=== PATIENT | female | born 1970 | race Caucasian/White ===

== ENCOUNTER 2017-12-08 11:04 | Emergency (ER) | payer OTHER, SELFPAY ==
[2017-12-08 11:07] VITALS: BP 128/82; PULSE 94; RESP 16; TEMP 36.7; O2SAT 98
--- NOTE | 2017-12-08 11:22 | ED.GENADUL_ITS ---
Discharge Plan Disposition Patient Disposition: HOME Condition: Improving Discharge Details Chief Complaint: Headache Clinical Impression: Migraine Primary Care Provider: Elisa Saini ED Provider: Amos Pham Home Meds and New Rx's Prescriptions: Continue ibuprofen 100 MG/5 ML suspension 200 mg PO PRN RF: 0 naproxen sodium [Aleve] 220 MG tablet 220 mg PO Q12H PRN RF: 0 gabapentin 300 MG capsule 300 mg PO Q8H PRN Qty: 60 RF: 3 amitriptyline 50 MG tablet 50 mg PO HS Qty: 30 RF: 6 Aspirin/Acetaminophen/Caffeine [Excedrin Migraine Caplet] 1 EACH Tablet 1 tab PO PRN PRNRF: 0 Discharge Instructions Instructions: Migraine Headache (ED) Additional Instructions: Home to rest today. Sleep in a dark, quiet room. Small, frequent sips of fluids to maintain hydration. Return to the emergency department for development of fever, worsening headache , or any other acute concerns. Continue all of your regularly prescribed medications. Medical Decision Making MDM Narrative Medical decision making narrative: 47-year-old female patient presents with migraine headache similar to previous. No recent trauma or illness afebrile, nonfocal neurologic exam. IV placed, patient given parenteral fluids and medications. Patient observed in the emergency department. She had near complete resolution of her headache. She has no further persistent complaints. No evidence of meningitis or cortical stroke. She is appropriate for discharge home at this time. I discussed with her return precautions to the ER HPI - General Adult General Mode of arrival: ambulatory . Date/Time Provider Initiated Documentation: 12/08/17 11:12 . Limitations to Documentation: no limitations . Information obtained by: patient . History of Present Illness 47 year old F presents to the emergency department with the chief complaint of Headache, described as severe, Quality is described as aching and constant, and is localized to the head and chest. Patient reports no radiation. Patient started experiencing this hour(s) and it has been constant. No relieving factors improve symptom(s), Other factors that worsen symptoms ( light) . HPI Narrative: 47-year-old patient presents with headache similar to previous migraines. No recent fall, illness. Has been refractory to home medications Related Data Home Medications Medication Instructions Recorded Confirmed ibuprofen 200 mg PO PRN ml 10/07/12 04/10/17 Aspirin/Acetaminophen/Caffeine 1 tab PO PRN PRN 04/10/17 04/10/17 [Excedrin Migraine Caplet] naproxen sodium [Aleve] 220 mg PO Q12H PRN tab-cap 04/16/17 Previous Rx's Medication Instructions Recorded gabapentin 300 mg PO Q8H PRN #60 tab-cap 08/13/17 amitriptyline 50 mg PO HS #30 tab-cap 11/22/17 Allergies Allergy/AdvReac Type Severity Reaction Status Date / Time fentanyl Allergy Severe SOB Unverified 12/08/17 11:12 morphine Allergy Intermediate Itching Unverified 12/08/17 11:12 General Stated Complaint: Headache NARA: 4 Review of Systems Review of Systems 8 systems reviewed and otherwise neg PFSH Social History Smoking/Tobacco Use Status: Current every day Exam Narrative Exam Narrative: GEN: awake, alert, oriented x3. Lying in darkened room, well groomed, interactive. HEAD: Normocephalic, atraumatic ENT: Mucous membranes moist, oropharynx unremarkable, External ear exam unremarkable EYES: PERRL, EOMI NECK: Full ROM, no MIGUEL, no menigismus CHEST/RESP: Nontender, bilateral end exp wheeze, speaking in full sentences CARDIOVASCULAR: RRR, no murmur, rub jerome. 2+ Rad pulse bilateral ABDOMEN: Soft, nontender, no mass. +Bowel sounds EXT: Full ROM, no edema, no rash Neuro: Grossly normal neurologic exam, conversant, interactive. Psych: Speech fluent, thoughts congruent, affect normal Course Vital Signs Temperature 36.7 C 12/08/17 11:07 Pulse 94 H 12/08/17 11:07 Respiratory Rate 16 12/08/17 11:07 Blood Pressure 128/82 12/08/17 11:07 Pulse Oximetry 98 12/08/17 11:07 Temperature 36.7 C 12/08/17 11:07 Pulse 94 H 12/08/17 11:07 Respiratory Rate 16 12/08/17 11:07 Blood Pressure 128/82 12/08/17 11:07 Pulse Oximetry 98 12/08/17 11:07
[2017-12-08] MEDS: Normal Saline 1,000 ML 1000 ML IV (11:35)
[2017-12-08] MEDS: diphenhydrAMINE 50 MG/ML VIAL 25 MG IVP (11:36)
[2017-12-08] MEDS: Ondansetron 4 MG/2 ML VIAL IVP (11:36)
[2017-12-08] MEDS: Ketorolac 30 MG/ML VIAL IM (11:55)
== END 2017-12-08 12:55 | disposition home or self-care (01) ==
PROVIDERS: Emergency Provider Emergency Medicine; PCP Nurse Practitioner
DX: G43.909 Migraine, unspecified, not intractable, without status migrainosus (principal)
CPT/HCPCS: 96374; 96375; 96376; 99284; 99283; J1200; J1885; J2405

== ENCOUNTER 2018-08-22 08:39 | Inpatient (IN) | payer OTHER, SELFPAY ==
[2018-08-22] VITALS (37 sets, daily range): BP systolic 104–136; BP diastolic 70–89; PULSE 93–132; RESP 1–95; TEMP 36.2–37.2; O2SAT 94–100
--- NOTE | 2018-08-22 08:52 | DI.RAD_ITS ---
SYMPTOM/DIAGNOSIS: SOB, H/O PNEUMOTHORAX PA AND LATERAL CHEST: Pulmonary hyperinflation is demonstrated, the findings are consistent with COPD. Apical pulmonary and pleural scarring is identified. No infiltrate is seen. There is no evidence of a pneumothorax or pleural effusion. The heart is top limits of normal in size. The hilar structures, mediastinum and tracheal air column are intact. SUMMARY: Findings consistent with COPD and pulmonary scarring. No evidence of acute cardiopulmonary disease.
--- NOTE | 2018-08-22 08:53 | W.ED.GENAD ---
Discharge Plan Disposition Patient Disposition: [facility] INPATIENT Condition: Stable Discharge Details Chief Complaint: RespSymp Clinical Impression: Left bundle branch block (LBBB) on electrocardiogram, Orthopnea Primary Care Provider: Elisa Saini ED Provider: Amos Pham Home Meds and New Rx's Prescriptions: No Action Aimovig Autoinjector 70 mg/mL auto-injector 70 mg SC QMONTH Qty: 1 RF: 2 cyproheptadine 4 mg tablet 4 mg PO Q6H PRN (Reason: migraine headache) Qty: 30 RF: 2 ibuprofen 100 MG/5 ML suspension 200 mg PO PRN RF: 0 naproxen sodium [Aleve] 220 MG tablet 220 mg PO Q12H PRN RF: 0 Aspirin/Acetaminophen/Caffeine [Excedrin Migraine Caplet] 1 EACH tablet 1 tab PO PRN PRNRF: 0 amitriptyline 25 mg tablet 100 mg PO QHS RF: 0 Medical Decision Making 47-year-old female states she has had 2 weeks of shortness of breath that is predominantly worse when lying flat. She does not state that she has had significant chest pain. She has not had a fever or cough. This morning it seemed to be worse and was not relieved with sitting. She arrives to the emergency department afebrile, mildly tachycardic and anxious. She is a smoker with a history of previous pneumothorax. Afebrile and with normal oxygenation. She is given a small amount of anxiolytic, placed in a monitoring specialist, given a DuoNeb updraft and referred for laboratory testing and stat chest x-ray. Differential diagnosis is broad and includes acute coronary syndrome, pneumothorax, pulmonary embolism, pericarditis, COPD. Chest x-ray does not reveal acute findings. The patient's d-dimer is elevated at 979, the BNP is 8512. Electrolytes unremarkable BUN 12 with creatinine of 0.8. CRP is somewhat elevated at 0.9. Troponin negative at 0.[address] scan of the chest: No evidence of PE. Changes consistent with COPD. Please see formal report. The patient will now admit that she has had shortness of breath with exertion for greater than 2 months time. She remains mildly tachycardic, I do feel she merits admission for further serial troponins, consideration of echocardiogram. Lab Data Lab results reviewed: Yes I reviewed the patient's lab results. Laboratory Results - last 24 hr 08/22/18 08/22/18 08/22/18 08:55 08:55 08:55 WBC 9.88 RBC 3.85 L Hgb 13.7 Hct 39.5 MCV 102.6 H MCH 35.6 H MCHC 34.7 RDW 12.7 Plt Count 240 MPV 9.1 Immature Gran % 0.3 Neutrophils % 68.6 Lymphocytes % 22.1 Monocytes % 7.6 Eosinophils % 0.9 Basophils % 0.5 Absolute Neutrophils 6.78 H Absolute Lymphocytes 2.18 Absolute Monocytes 0.75 H Absolute Eosinophils 0.09 Absolute Basophils 0.05 D-Dimer 979 H Sodium 140 Potassium 4.0 Chloride 107 Carbon Dioxide 22.4 Anion Gap 10.6 BUN 12 Creatinine 0.89 Estimated GFR/1.73 m2 >= 60.00 Glucose 118 H Calcium 9.9 Total Bilirubin 0.3 AST 19 ALT 25 Alkaline Phosphatase 126 H Troponin I 0.05 C-Reactive Protein NT-Pro-B Natriuret Pep Total Protein 8.2 Albumin 3.6 08/22/18 08:55 WBC RBC Hgb Hct MCV MCH MCHC RDW Plt Count MPV Immature Gran % Neutrophils % Lymphocytes % Monocytes % Eosinophils % Basophils % Absolute Neutrophils Absolute Lymphocytes Absolute Monocytes Absolute Eosinophils Absolute Basophils D-Dimer Sodium Potassium Chloride Carbon Dioxide Anion Gap BUN Creatinine Estimated GFR/1.73 m2 Glucose Calcium Total Bilirubin AST ALT Alkaline Phosphatase Troponin I C-Reactive Protein 0.94 H NT-Pro-B Natriuret Pep 8512 H Total Protein Albumin ECG Data Attestation: I personally reviewed and interpreted this ECG (s) as follows: Prior ECG tracings: available for review Interpretation: Left bundle branch block morphology, sinus tachycardia with a rate of 120, no concordant ST segment changes. Similar morphology to that of September 13, 2015 [facility] General Mode of arrival: ambulatory. Date/Time Provider Initiated Documentation: 08/22/18 08:41. Limitations to Documentation: no limitations. Information obtained by: patient. History of Present Illness 47 year old F presents to the emergency department with the chief complaint of Shortness of breath, worse when lying down for the past 2 weeks, described as moderate, Quality is described as dull, and is localized to the chest. Patient reports no radiation. Patient started experiencing this day(s) and it has been constant. other things that improve symptom(s), (Sitting up) Other factors that worsen symptoms (Laying flat) . Patient notes denies cough, fever/chills and syncope. Patient did receive the following treatments prior to arrival, none Related Data Home Medications Medication Instructions Recorded Confirmed ibuprofen 200 mg PO PRN ml 10/07/12 08/22/18 Aspirin/Acetaminophen/Caffeine 1 tab PO PRN PRN 04/10/17 08/22/18 [Excedrin Migraine Caplet] naproxen sodium [Aleve] 220 mg PO Q12H PRN tab-cap 04/16/17 08/22/18 cyproheptadine 4 mg tablet 4 mg PO Q6H PRN #30 tab 08/12/18 08/22/18 erenumab-aooe 70 mg/mL 70 mg SC QMONTH #1 each 08/12/18 08/22/18 subcutaneous auto-injector amitriptyline 100 mg PO QHS 08/22/18 08/22/18 Previous Rx's Medication Instructions Recorded cyproheptadine 4 mg tablet 4 mg PO Q6H PRN #30 tab 08/12/18 erenumab-aooe 70 mg/mL 70 mg SC QMONTH #1 each 08/12/18 subcutaneous auto-injector Allergies Allergy/AdvReac Type Severity Reaction Status Date / Time fentanyl Allergy Severe SOB Unverified 08/22/18 08:48 morphine Allergy Intermediate Itching Unverified 08/22/18 08:48 General Stated Complaint: RespSymp NARA: 3 Review of Systems Review of Systems No recent travel. Denies leg pain or swelling. No fever or chill. 8 systems reviewed and otherwise neg [facility] Medical History Left bundle branch block (Acute) Tobacco use (Acute) Vitamin D deficiency (Acute) Cervicalgia (Chronic) Depression (Chronic) H/O: hysterectomy (Chronic) Headache, chronic migraine without aura (Chronic) Migraine with aura, not intractable, without status migrainosus (Chronic) Stroke (Chronic) Surgical History History of (Chronic) Social History Smoking/Tobacco Use Status: Current every day Alcohol Intake: never Drug use: Never Do you feel safe at home: Yes Do you feel safe in your relationship?: Yes Exam Narrative Exam Narrative: GEN: awake, alert, oriented 3. Pleasant, well groomed, interactive. HEAD: Normocephalic, atraumatic ENT: Mucous membranes moist, oropharynx unremarkable, External ear exam unremarkable EYES: PERRL, EOMI NECK: Full ROM, no MIGUEL, no menigismus CHEST/RESP: Nontender, clear to auscultation bilateral, no wheeze/rhonchi/rales CARDIOVASCULAR: Tachycardic, regular, no murmur, rub jerome. 2+ Rad pulse bilateral ABDOMEN: Soft, nontender, no mass. +Bowel sounds EXT: Full ROM, no edema, no rash Neuro: Grossly normal neurologic exam, conversant, interactive. Psych: Speech fluent, thoughts congruent, affect anxious Course Vital Signs Temperature 36.9 C 08/22/18 08:45 Pulse 117 H 08/22/18 08:45 Respiratory Rate 15 08/22/18 08:45 Blood Pressure 125/87 08/22/18 08:45 Pulse Oximetry 100 08/22/18 08:45 Temperature 36.9 C 08/22/18 08:45 Temperature Source Temporal Artery Scan 08/22/18 08:45 Pulse 117 H 08/22/18 08:45 Respiratory Rate 15 08/22/18 08:45 Blood Pressure 125/87 08/22/18 08:45 Blood Pressure Position Sitting 08/22/18 08:45 Pulse Oximetry 100 08/22/18 08:45 Oxygen Delivery Method Room Air 08/22/18 08:45 Oxygen Flow Rate 0 08/22/18 08:45
--- NOTE | 2018-08-22 08:56 | ED.GENADUL_ITS ---
Discharge Plan Disposition Patient Disposition: [facility] INPATIENT Condition: Stable Discharge Details Chief Complaint: RespSymp Clinical Impression: Left bundle branch block (LBBB) on electrocardiogram, Orthopnea Primary Care Provider: Elisa Saini ED Provider: Amos Pham Home Meds and New Rx's Prescriptions: No Action Aimovig Autoinjector 70 mg/mL auto-injector 70 mg SC QMONTH Qty: 1 RF: 2 cyproheptadine 4 mg tablet 4 mg PO Q6H PRN (Reason: migraine headache) Qty: 30 RF: 2 ibuprofen 100 MG/5 ML suspension 200 mg PO PRN RF: 0 naproxen sodium [Aleve] 220 MG tablet 220 mg PO Q12H PRN RF: 0 Aspirin/Acetaminophen/Caffeine [Excedrin Migraine Caplet] 1 EACH tablet 1 tab PO PRN PRNRF: 0 amitriptyline 25 mg tablet 100 mg PO QHS RF: 0 Medical Decision Making 47-year-old female states she has had 2 weeks of shortness of breath that is predominantly worse when lying flat. She does not state that she has had significant chest pain. She has not had a fever or cough. This morning it seemed to be worse and was not relieved with sitting. She arrives to the emergency department afebrile, mildly tachycardic and anxious. She is a smoker with a history of previous pneumothorax. Afebrile and with normal oxygenation. She is given a small amount of anxiolytic, placed in a floor scrubber, given a DuoNeb updraft and referred for laboratory testing and stat chest x-ray. Differential diagnosis is broad and includes acute coronary syndrome, pneumothorax, pulmonary embolism, pericarditis, COPD. Chest x-ray does not reveal acute findings. The patient's d-dimer is elevated at 979, the BNP is 8512. Electrolytes unremarkable BUN 12 with creatinine of 0.8. CRP is somewhat elevated at 0.9. Troponin negative at 0.[address] scan of the chest: No evidence of PE. Changes consistent with COPD. Please see formal report. The patient will now admit that she has had shortness of breath with exertion for greater than 2 months time. She remains mildly tachycardic, I do feel she merits admission for further serial troponins, consideration of echocardiogram. Lab Data Lab results reviewed: Yes I reviewed the patient's lab results. Laboratory Results - last 24 hr 08/22/18 08/22/18 08/22/18 08:55 08:55 08:55 WBC 9.88 RBC 3.85 L Hgb 13.7 Hct 39.5 MCV 102.6 H MCH 35.6 H MCHC 34.7 RDW 12.7 Plt Count 240 MPV 9.1 Immature Gran % 0.3 Neutrophils % 68.6 Lymphocytes % 22.1 Monocytes % 7.6 Eosinophils % 0.9 Basophils % 0.5 Absolute Neutrophils 6.78 H Absolute Lymphocytes 2.18 Absolute Monocytes 0.75 H Absolute Eosinophils 0.09 Absolute Basophils 0.05 D-Dimer 979 H Sodium 140 Potassium 4.0 Chloride 107 Carbon Dioxide 22.4 Anion Gap 10.6 BUN 12 Creatinine 0.89 Estimated GFR/1.73 m2 >= 60.00 Glucose 118 H Calcium 9.9 Total Bilirubin 0.3 AST 19 ALT 25 Alkaline Phosphatase 126 H Troponin I 0.05 C-Reactive Protein NT-Pro-B Natriuret Pep Total Protein 8.2 Albumin 3.6 08/22/18 08:55 WBC RBC Hgb Hct MCV MCH MCHC RDW Plt Count MPV Immature Gran % Neutrophils % Lymphocytes % Monocytes % Eosinophils % Basophils % Absolute Neutrophils Absolute Lymphocytes Absolute Monocytes Absolute Eosinophils Absolute Basophils D-Dimer Sodium Potassium Chloride Carbon Dioxide Anion Gap BUN Creatinine Estimated GFR/1.73 m2 Glucose Calcium Total Bilirubin AST ALT Alkaline Phosphatase Troponin I C-Reactive Protein 0.94 H NT-Pro-B Natriuret Pep 8512 H Total Protein Albumin ECG Data Attestation: I personally reviewed and interpreted this ECG (s) as follows: Prior ECG tracings: available for review Interpretation: Left bundle branch block morphology, sinus tachycardia with a rate of 120, no concordant ST segment changes. Similar morphology to that of September 13, 2015 [facility] General Mode of arrival: ambulatory . Date/Time Provider Initiated Documentation: 08/22/18 08:41 . Limitations to Documentation: no limitations . Information obtained by: patient . History of Present Illness 47 year old F presents to the emergency department with the chief complaint of Shortness of breath, worse when lying down for the past 2 weeks, described as moderate, Quality is described as dull, and is localized to the chest. Patient reports no radiation. Patient started experiencing this day(s) and it has been constant. other things that improve symptom(s), (Sitting up) Other factors that worsen symptoms (Laying flat) . Patient notes denies cough, fever/chills and syncope. Patient did receive the following treatments prior to arrival, none Related Data Home Medications Medication Instructions Recorded Confirmed ibuprofen 200 mg PO PRN ml 10/07/12 08/22/18 Aspirin/Acetaminophen/Caffeine 1 tab PO PRN PRN 04/10/17 08/22/18 [Excedrin Migraine Caplet] naproxen sodium [Aleve] 220 mg PO Q12H PRN tab-cap 04/16/17 08/22/18 cyproheptadine 4 mg tablet 4 mg PO Q6H PRN #30 tab 08/12/18 08/22/18 erenumab-aooe 70 mg/mL 70 mg SC QMONTH #1 each 08/12/18 08/22/18 subcutaneous auto-injector amitriptyline 100 mg PO QHS 08/22/18 08/22/18 Previous Rx's Medication Instructions Recorded cyproheptadine 4 mg tablet 4 mg PO Q6H PRN #30 tab 08/12/18 erenumab-aooe 70 mg/mL 70 mg SC QMONTH #1 each 08/12/18 subcutaneous auto-injector Allergies Allergy/AdvReac Type Severity Reaction Status Date / Time fentanyl Allergy Severe SOB Unverified 08/22/18 08:48 morphine Allergy Intermediate Itching Unverified 08/22/18 08:48 General Stated Complaint: RespSymp NARA: 3 Review of Systems Review of Systems No recent travel. Denies leg pain or swelling. No fever or chill. 8 systems reviewed and otherwise neg [facility] Medical History Left bundle branch block (Acute) Tobacco use (Acute) Vitamin D deficiency (Acute) Cervicalgia (Chronic) Depression (Chronic) H/O: hysterectomy (Chronic) Headache, chronic migraine without aura (Chronic) Migraine with aura, not intractable, without status migrainosus (Chronic) Stroke (Chronic) Surgical History History of (Chronic) Social History Smoking/Tobacco Use Status: Current every day Alcohol Intake: never Drug use: Never Do you feel safe at home: Yes Do you feel safe in your relationship?: Yes Exam Narrative Exam Narrative: GEN: awake, alert, oriented 3. Pleasant, well groomed, interactive. HEAD: Normocephalic, atraumatic ENT: Mucous membranes moist, oropharynx unremarkable, External ear exam unremark able EYES: PERRL, EOMI NECK: Full ROM, no MIGUEL, no menigismus CHEST/RESP: Nontender, clear to auscultation bilateral, no wheeze/rhonchi/rales CARDIOVASCULAR: Tachycardic, regular, no murmur, rub jerome. 2+ Rad pulse bilateral ABDOMEN: Soft, nontender, no mass. +Bowel sounds EXT: Full ROM, no edema, no rash Neuro: Grossly normal neurologic exam, conversant, interactive. Psych: Speech fluent, thoughts congruent, affect anxious Course Vital Signs Temperature 36.9 C 08/22/18 08:45 Pulse 117 H 08/22/18 08:45 Respiratory Rate 15 08/22/18 08:45 Blood Pressure 125/87 08/22/18 08:45 Pulse Oximetry 100 08/22/18 08:45 Temperature 36.9 C 08/22/18 08:45 Temperature Source Temporal Artery Scan 08/22/18 08:45 Pulse 117 H 08/22/18 08:45 Respiratory Rate 15 08/22/18 08:45 Blood Pressure 125/87 08/22/18 08:45 Blood Pressure Position Sitting 08/22/18 08:45 Pulse Oximetry 100 08/22/18 08:45 Oxygen Delivery Method Room Air 08/22/18 08:45 Oxygen Flow Rate 0 08/22/18 08:45
[2018-08-22] MEDS: Albuterol/Ipratropium 3 ML UPD VIAL UPD (08:59)
[2018-08-22] MEDS: Normal Saline 1,000 ML 500 ML IV (09:02)
[2018-08-22] MEDS: LORazepam 2 MG/ML VIAL 0.5 MG IVP ×2 (09:02→10:43)
[2018-08-22 09:05] LABS: Abs Immature Grans 0.03 k/cumm (0.0-0.09); Absolute Basophil Count 0.05 k/cumm (0.0-0.2); Absolute Eosinophil Count 0.09 k/cumm (0.0-0.7); Absolute Lymphocyte Count 2.18 k/cumm (1.2-3.4); Absolute Monocyte Count 0.75 k/cumm (0.11-0.7); Absolute Neutrophil Count 6.78 k/cumm (1.2-6.7); Basophils % 0.5; Eosinophils % 0.9; HCT 39.5 % (36.0-46.0); HGB 13.7 g/dL (12.0-15.5); Immature Grans % 0.3; Lymphocytes % 22.1; Mean Corp. HGB Concentration 34.7 g/dL (32.0-36.0); Mean Corpuscular Hemoglobin 35.6 pg (27.0-33.0); Mean Corpuscular Volume 102.6 fL (80-95); Mean Platelet Volume 9.1 fL (8.0-11.0); Monocytes % 7.6; Neutrophils % 68.6; Platelet Count 240 x1000/uL (130-400); RBC 3.85 m/cumm (4.00-5.20); RBC Distribution Width 12.7 % (11.7-14.6); White Blood Cell Count 9.88 k/cumm (4.4-10.8)
[2018-08-22] MEDS: Normal Saline Flush 10 ML SYR IVP ×3 (09:05→21:06)
[2018-08-22 09:22] LABS: ALT 25 U/L (12-78); AST 19 U/L (15-37); Albumin 3.6 g/dL (3.4-5.0); Alkaline Phosphatase 126 U/L (46-116); Anion Gap 10.6 mmol/L (3-11); BUN 12 mg/dL (7-18); Bilirubin, Total 0.3 mg/dL (0.2-1.0); CO2 22.4 mmol/L (21.0-32.0); CREATININE 0.89 mg/dL (0.55-1.02); Calcium 9.9 mg/dL (8.5-10.1); Chloride 107 mmol/L (98-107); Glucose 118 mg/dL (70-100); Sodium 140 mmol/L (136-145); Total Protein 8.2 g/dL (6.4-8.2); Troponin I 0.05 ng/mL (0.00-0.06)
[2018-08-22 09:28] LABS: C-Reactive Protein 0.94 mg/dL (0.0-0.3); NT-proBNP 8512 pg/mL
[2018-08-22 09:35] LABS: D-Dimer 979 ng/mlFEU (<500)
--- NOTE | 2018-08-22 09:36 | DI.CT_ITS ---
SYMPTOM/DIAGNOSIS: RT CHEST DISCOMFORT, SOB, ELEVATED D DIMER, TACHYCARDIA PE CHEST CT: CT angiography was performed with multi slice acquisition and multi planar and 3D reconstruction. The study was carried out according to the usual protocol with an intravenous infusion of 100 cc's of Omnipaque 350. Centrilobular emphysematous changes are noted throughout the lungs and there is a large bleb in the left lower lobe. Bilateral pleural thickening is identified and I could not exclude a small bilateral pleural effusion. There is no infiltrate. There is no evidence of pulmonary embolic disease. The heart is enlarged. There is no evidence of a pericardial effusion. SUMMARY: COPD, no evidence of PE. A tiny bilateral pleural effusion could not be excluded.
[2018-08-22] MEDS: Omnipaque 350 MG/ML 100 ML BTL IJ (10:09)
[2018-08-22] MEDS: Aspirin 81 MG CHEW 162 MG CH (10:41)
[2018-08-22] MEDS: Furosemide 20 MG/2 ML VIAL 10 MG IVP (10:42)
[2018-08-22 13:32] LABS: TSH 3.55 uIU/mL (0.358-3.74)
[2018-08-22] MEDS: Enoxaparin 40 MG/0.4 ML SYR SC (14:14)
--- NOTE | 2018-08-22 14:15 | MERGE_ITS ---
*[facility]* *[facility]* [address] [place] [address] Date of study: 08/22/2018 Transthoracic Echocardiography M-mode, complete 2D, complete spectral Doppler, and color Doppler *STUDY CONCLUSIONS* Summary: 1. Left ventricle: The cavity size was moderately dilated. Wall thickness was normal. The estimated ejection fraction was 15-20%. Severe diffuse hypokinesis with regional variations. Severe hypokinesis of the anteroseptal myocardium. No evidence of thrombus. 2. Mitral valve: There was severe regurgitation directed posteriorly. 3. Left atrium: The atrium was severely dilated. 4. Right ventricle: The cavity size was normal. Wall thickness was normal. Systolic function was normal. 5. Atrial septum: There was a secundum atrial septal defect. There was a moderate [id number]-daanm atrial level shunt. 6. Tricuspid valve: There was moderate regurgitation. 7. Pulmonary arteries: Pulmonary systolic pressure was in the range of 45mm Hg to 55mm Hg. 8. Inferior vena cava: The vessel was patent and normal in size. The respirophasic diameter changes were in the normal range (greater than or equal to 50%), consistent with normal central venous pressure. *PATIENT PRESENTATION* Height: 172.7cm ((68in) ) S/D Pressure: 136 / 89 Weight: 59kg ((129.7lb) ) BSA: 1.68m^2 Test start time: 02:30 AM. Test stop time: 03:20 PM. PERFORMING Unknown ORDERING Hebert Martínez REFERRING Hebert Martínez PERFORMING [facility] CONSULTING Elisa Saini OCCUPATIONAL HEALTH PHYSIOTHERAPIST Susie Gonzalez, RT (R)(CT), [facility] *PROCEDURE DATA* Procedure information: The patient was identified by two identifiers. This study was interpreted by [facility]. Pertinent images and digital data are archived for permanent storage and are available for subsequent review. No prior study was available for comparison. Study status: STAT. Transthoracic echocardiography. M-mode, complete 2D, complete spectral Doppler, and color Doppler. A Transthoracic Echocardiogram was performed. Scanning was performed from the parasternal, apical, subcostal, and suprasternal notch acoustic windows. Images were obtained using an [id number] cardiac ultrasound machine. Image quality was good. Study completion: The patient tolerated the procedure well. History: PMH: New onset CHF hx COPD. *CARDIAC ANATOMY* Left ventricle: The cavity size was moderately dilated. Wall thickness was normal. The estimated ejection fraction was 15-20%. Severe diffuse hypokinesis with regional variations. No evidence of thrombus. Regional wall motion abnormalities: Severe hypokinesis of the anteroseptal myocardium. Doppler parameters are consistent with high ventricular filling pressure. Aortic valve: Trileaflet. Doppler: There was no stenosis. There was no regurgitation. VTI ratio of LVOT to aortic valve: 0.92. Valve area (VTI): 2.9cm^2. Indexed valve area (VTI): 1.7cm^2/m^2. Peak velocity ratio of LVOT to aortic valve: 0.9. Valve area (Vmax): 2.8cm^2. Indexed valve area (Vmax): 1.7cm^2/m^2. Mean velocity ratio of LVOT to aortic valve: 0.79. Valve area (Vmean): 2.5cm^2. Indexed valve area (Vmean): 1.5cm^2/m^2. Mean gradient (S): 1.9mm Hg. Peak gradient (S): 3.3mm Hg. Aorta: Aortic root: The aortic root was normal in size. Mitral valve: No echocardiographic evidence for prolapse. There was nothing to suggest chordal rupture or a flail leaflet. Doppler: There was no evidence for stenosis. There was severe regurgitation directed posteriorly. Valve area by pressure half-time: 10cm^2. Indexed valve area by pressure half-time: 6cm^2/m^2. Peak gradient (D): 10.5mm Hg. Left atrium: The atrium was severely dilated. Atrial septum: There was a secundum atrial septal defect. There was a moderate [id number]-[id number] atrial level shunt. Right ventricle: The cavity size was normal. Wall thickness was normal. Systolic function was normal. Pulmonic valve: Doppler: There was no evidence for stenosis. There was no significant regurgitation. Peak gradient (S): 1.9mm Hg. Tricuspid valve: Doppler: There was moderate regurgitation. Pulmonary artery: The main pulmonary artery was normal-sized. Pulmonary systolic pressure was in the range of 45mm Hg to 55mm Hg. Right atrium: The atrium was normal in size. Pericardium: There was no pericardial effusion. Systemic veins: Inferior vena cava: Well visualized. The vessel was patent and normal in size. The respirophasic diameter changes were in the normal range (greater than or equal to 50%), consistent with normal central venous pressure. Measurements Left ventricle Value Reference LV ID, ED, PLAX (H) 6.6 cm 3.5 - 6.0 LV ID, ES, PLAX (H) 6.1 cm 2.1 - 4.0 LV PW thickness, ED, PLAX 0.9 cm LV end-diastolic volume, 1-p A2C 109 ml LV ejection fraction, 1-p A2C 16 % LV end-diastolic volume, 1-p A4C 138 ml LV ejection fraction, 1-p A4C 15 % LV e', lateral 0.099 m/sec LV E/e', lateral 16 LV e', medial 0.113 m/sec LV E/e', medial 14 LV e', average 0.106 m/sec LV E/e', average 15 Ventricular septum Value Reference IVS thickness, ED, PLAX 1.0 cm LVOT Value Reference LVOT ID, A-P 2.0 cm LVOT area 3.1 cm^2 LVOT peak velocity, S 0.82 m/sec LVOT mean velocity, S 0.51 m/sec LVOT VTI, S 9.2 cm LVOT peak gradient, S 2.7 mm Hg LVOT mean gradient, S 1.3 mm Hg Stroke volume (SV), LVOT DP 29 ml Stroke index (SV/bsa), LVOT DP 17 ml/m^2 Aortic valve Value Reference Aortic valve peak velocity, S 0.9 m/sec Aortic valve mean velocity, S 0.64 m/sec Aortic valve VTI, S 10.0 cm Aortic mean gradient, S 1.9 mm Hg Aortic peak gradient, S 3.3 mm Hg VTI ratio, LVOT/AV 0.92 Aortic valve area, VTI 2.9 cm^2 Velocity ratio, peak, LVOT/AV 0.9 Aortic valve area, peak velocity 2.8 cm^2 Velocity ratio, mean, LVOT/AV 0.79 Aortic valve area, mean velocity 2.5 cm^2 Aortic valve area/bsa, mean velocity 1.5 cm^2/m^2 Aorta Value Reference Aortic root ID, ED 2.7 cm Left atrium Value Reference LA ID, A-P, ES 3.9 cm LA ID/bsa, A-P (H) 2.3 cm/m^2 <=2.2 LA area, ES, A4C (H) 25 cm^2 8.8 - 23.4 LA area, ES, A2C 23 cm^2 LA volume/bsa, ES, 1-p A4C 55 ml/m^2 LA volume, ES, 2-p 83 ml LA volume/bsa, ES, 2-p 50 ml/m^2 LA/aortic root ratio 1.47 Mitral valve Value Reference Mitral E-wave peak velocity 1.62 m/sec Mitral deceleration time (L) 76 ms 150 - 230 Mitral pressure half-time 22 ms Mitral peak gradient, D 10.5 mm Hg Mitral valve area, PHT, DP 10 cm^2 Tricuspid valve Value Reference Tricuspid regurg peak velocity 3.5 m/sec Tricuspid peak RV-RA gradient 49.1 mm Hg Right atrium Value Reference RA area, ES, A4C 9.2 cm^2 8.3 - 19.5 Pulmonic valve Value Reference Pulmonic peak gradient, S 1.9 mm Hg Legend: (L) and (H) ean values outside specified reference range. I have personally reviewed the images and have reviewed and edited the reported findings. Electronically signed by Axel Long MD 08/22/2018 18:20
--- NOTE | 2018-08-22 14:32 | HPE_ITS ---
Date of service: 08/22/18 Time of Service: 14:28 Assessment and Plan (1) Dyspnea: Current visit: Yes Status: Acute Unsure of etiology. Concern for CHF by ED attending secondary to positional dyspnea and elevated BNP. However, patient with significant emphysematous changes by CT, may have PHTN and RV Dysfunction as potential reason for elevated BNP levels. Also without wheezing by exam and with good air entry, lack of PE by CT of the chest, and no evidence of infectious etiology clinically or by imaging. Check ECHO, low dose diuretics, and maintain on telemetry. Will also check serial cardiac biomarkers. Further treatment pending results of above. (2) Elevated brain natriuretic peptide (BNP) level: Current visit: Yes Status: Acute As above. (3) Tobacco abuse: Current visit: Yes Status: Chronic Reports continued tobacco use. Will attempt NRT while hospitalized, and encourage cessation. (4) DVT prophylaxis: Current visit: Yes Status: Acute SC Enoxaparin. History of Present Illness Chief Complaint: Dyspnea Narrative: 47 year old woman with a past medical history significant for COPD and ongoing Tobacco Use, admitted from [facility] Emergency Department on 08/22 with complaint of worsening dyspnea. Ms. Denney has a prior history of Tobacco abuse and COPD. She has had 2 prior episodes of Spontaneous Pneumothorax (bilateral), and has evidence of a LBBB on ECG. Her other history includes a prior CVA attributed to use of OCP with concurrent tobacco abuse and potential 'hole in the heart', as well as a history of migraines. The patient presented to the ED with a reported 2 week history of dyspnea, including symptoms that subjectively worsened when laying supine. She denies a cough, change in sputum, fevers, or chest pain. Work-up in the ED included labwork that was significant for an elevated Pro-BNP of 8512, and a CXR and CT of the chest that were essentially unremarkable, and ECG with unchanged LBBB. She was referred for admission for work-up of potential new onset CHF. 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) Hypertrophy of nasal turbinates (Chronic 10/05/14) Migraine (Chronic 10/15/12) Left bundle branch block (LBBB) on electrocardiogram (Chronic) Left bundle branch block (Acute) Tobacco use (Acute) Vitamin D deficiency (Acute) Cervicalgia (Chronic) Depression (Chronic) H/O: hysterectomy (Chronic) Headache, chronic migraine without aura (Chronic) Migraine with aura, not intractable, without status migrainosus (Chronic) Stroke (Chronic) Surgical History History of (Chronic) Social History Smoking/Tobacco Use Status: Current every day Alcohol Intake: never Drug use: Never Do you feel safe at home: Yes Do you feel safe in your relationship?: Yes Meds Home Medications Medication Instructions Recorded Confirmed Type ibuprofen 200 mg PO PRN ml 10/07/12 08/22/18 History Aspirin/Acetaminophen/Caffeine 1 tab PO PRN PRN 04/10/17 08/22/18 History [Excedrin Migraine Caplet] naproxen sodium [Aleve] 220 mg PO Q12H PRN tab-cap 04/16/17 08/22/18 History cyproheptadine 4 mg tablet 4 mg PO Q6H PRN #30 tab 08/12/18 08/22/18 Rx erenumab-aooe 70 mg/mL 70 mg SC QMONTH #1 each 08/12/18 08/22/18 Rx subcutaneous auto-injector amitriptyline 100 mg PO QHS 08/22/18 08/22/18 History Allergies Allergy/AdvReac Type Severity Reaction Status Date / Time fentanyl Allergy Severe SOB Unverified 08/22/18 08:48 morphine Allergy Intermediate Itching Unverified 08/22/18 08:48 Exam Narrative Exam Narrative: General: Patient appears comfortable, AAOX3, NAD Neck: Supple CV: Regular, tachycardic, S1S2, No rubs, murmurs, or gallops. Pulmonary: Bibasilar crackles that appear mild, no wheezing or rhonchi. Abdomen: + Bowel Sounds, soft, nontender, nondistended Vascular: No lower extremity edema Neurologic: CN II-XII grossly intact. No focal deficits. Psych: Normal mood and affect. Results Imaging Additional studies: Exam(s) 08/22/2018 a RAD:XR chest 2V PA & lateral SYMPTOM/DIAGNOSIS: SOB, H/O PNEUMOTHORAX PA AND LATERAL CHEST: Pulmonary hyperinflation is demonstrated, the findings are consistent with COPD. Apical pulmonary and pleural scarring is identified. No infiltrate is seen. There is no evidence of a pneumothorax or pleural effusion. The heart is top limits of normal in size. The hilar structures, mediastinum and tracheal air column are intact. SUMMARY: Findings consistent with COPD and pulmonary scarring. No evidence of acute cardiopulmonary disease. Exam(s) 08/22/[address]:CT chest PE CTA SYMPTOM/DIAGNOSIS: RT CHEST DISCOMFORT, SOB, ELEVATED D DIMER, TACHYCARDIA PE CHEST CT: CT angiography was performed with multi slice acquisition and multi planar and 3D reconstruction. The study was carried out according to the usual protocol with an intravenous infusion of 100 cc's of Omnipaque 350. Centrilobular emphysematous changes are noted throughout the lungs and there is a large bleb in the left lower lobe. Bilateral pleural thickening is identified and I could not exclude a small bilateral pleural effusion. There is no infiltrate. There is no evidence of pulmonary embolic disease. The heart is enlarged. There is no evidence of a pericardial effusion. SUMMARY: COPD, no evidence of PE. A tiny bilateral pleural effusion could not be excluded. Labs : 08/22/18 08:55 08/22/18 08:55 Laboratory Results - last 24 hr 08/22/18 08/22/18 08/22/18 08:55 08:55 08:55 WBC 9.88 RBC 3.85 L Hgb 13.7 Hct 39.5 MCV 102.6 H MCH 35.6 H MCHC 34.7 RDW 12.7 Plt Count 240 MPV 9.1 Immature Gran % 0.3 Neutrophils % 68.6 Lymphocytes % 22.1 Monocytes % 7.6 Eosinophils % 0.9 Basophils % 0.5 Absolute Neutrophils 6.78 H Absolute Lymphocytes 2.18 Absolute Monocytes 0.75 H Absolute Eosinophils 0.09 Absolute Basophils 0.05 D-Dimer 979 H Sodium 140 Potassium 4.0 Chloride 107 Carbon Dioxide 22.4 Anion Gap 10.6 BUN 12 Creatinine 0.89 Estimated GFR/1.73 m2 >= 60.00 Glucose 118 H Calcium 9.9 Total Bilirubin 0.3 AST 19 ALT 25 Alkaline Phosphatase 126 H Troponin I 0.05 C-Reactive Protein NT-Pro-B Natriuret Pep Total Protein 8.2 Albumin 3.6 TSH 08/22/18 08/22/18 08:55 08:55 WBC RBC Hgb Hct MCV MCH MCHC RDW Plt Count MPV Immature Gran % Neutrophils % Lymphocytes % Monocytes % Eosinophils % Basophils % Absolute Neutrophils Absolute Lymphocytes Absolute Monocytes Absolute Eosinophils Absolute Basophils D-Dimer Sodium Potassium Chloride Carbon Dioxide Anion Gap BUN Creatinine Estimated GFR/1.73 m2 Glucose Calcium Total Bilirubin AST ALT Alkaline Phosphatase Troponin I C-Reactive Protein 0.94 H NT-Pro-B Natriuret Pep 8512 H Total Protein Albumin TSH 3.55 Last Vital Signs Temp 37.1 C 08/22/18 12:26 Pulse 101 H 08/22/18 12:26 Resp 20 08/22/18 12:26 BP 109/79 08/22/18 12:26 Pulse Ox 97 08/22/18 12:26
[2018-08-22 14:36] LABS: Troponin I 0.06 ng/mL (0.00-0.06)
[2018-08-22] MEDS: Furosemide 20 MG/2 ML VIAL IVP (15:52)
[2018-08-22] MEDS: Magnesium Oxide 400 MG TAB PO (18:03)
[2018-08-22 18:47] LABS: Magnesium 1.8 mg/dL (1.8-2.4)
[2018-08-22 18:55] LABS: Troponin I 0.06 ng/mL (0.00-0.06)
[2018-08-22] MEDS: Atorvastatin 40 MG TAB PO (19:17)
[2018-08-22] MEDS: MAGNESIUM SULFATE 2 GM/50 ML BAG IVPB (21:05)
[2018-08-22] MEDS: Amitriptyline 50 MG TAB 100 MG PO (21:17)
[2018-08-22 23:04] LABS: Troponin I 0.06 ng/mL (0.00-0.06)
[2018-08-22] MEDS: Metoprolol 5 MG/5 ML VIAL 2.5 MG IVP (23:33)
--- NOTE | 2018-08-22 23:33 | NUR.NOTE ---
AT 10:20: Went to do rounding on Rufina I noticed she was having some facial grimace she state she was having a pain into her chest that goes into her back. She state the pain was more significantly into her back. I asked her to rate the pain and also to describe the pain (rated 7/10 and she described same as sharp). I immediately did the vitals signs and initiated oxygen 2Litres, charge nurse immediately informed. Vitals were done and charted a patient was closely being monitored since and medicated as per orders.
--- NOTE | 2018-08-22 23:42 | PGE_ITS ---
Date of Service Date of service: 08/22/18 Time of Service: 23:42 Assessment and Plan (1) Atypical chest pain: Current visit: Yes Status: Acute We will continue to monitor troponin levels overnight and repeat her EKGs as needed. Patient will be moved back to the intensive care unit for closer monitoring as well as for trial of IV beta-shonna for rate control. If she exhibits acute ischemic changes we will start her on nitroglycerin drip as her blood pressure will allow and begin her on systemic heparin (2) Ischemic dilated cardiomyopathy: Current visit: Yes Status: Acute Patient is already on low-dose IV Lasix to try to keep her euvolemic. I will initiate low-dose IV beta-shonna and if she tolerates this overnight will start her on low-dose oral beta-shonna in the morning. If her blood pressure will tolerate she should be considered for low-dose DEMIAN inhibitor. Patient needs transfer to a tertiary care center tomorrow for invasive cardiology work- up including right and left heart catheterization. (3) Severe mitral regurgitation: Current visit: Yes Status: Acute Patient needs invasive cardiac catheterization including right and left heart catheterization to assess her coronary vascular status. She should also have a BHASKAR to evaluate her mitral valve. Once she had a complete cardiac evaluation and further decisions can be made about revascularization and valvular repair. (4) Ostium secundum atrial septal defect: Current visit: Yes Status: Chronic Cardiac work-up as listed above Subjective Interval history since last seen: Patient with complaints of substernal chest discomfort with radiation into her left infrascapular area. Anterior chest pain was not reproducible with palpation of her sternum however the left infrascapular pain was reproducible with palpation over her ribs. Repeat ECG was obtained and demonstrates sinus tachycardia at a rate of 106 bpm with a left bundle branch block pattern with peak T waves and upward sloping ST segments across the precordial anterior leads with reciprocal ST depression and T wave inversion in the lateral leads I, aVL and V6. These are similar but more pronounced findings compared to her prior ECG from this morning at 8:45 AM. Patient was given 2 sublingual nitroglycerin with no relief of her chest discomfort. Patient admits to feeling anxious and upset over the news of her tests from earlier today. Patient was medicated with Lorazepam and the patient will be transferred to the intensive care unit for further evaluation as well as treatment of her heart rate. I gave her a dose of Lopressor 2.5 mg IV prior to transfer. The plan will be to try her on a infusion of esmolol for antianginal as well as antitachycardia effect. Choice of esmolol was made because of its short half-life in the event that she gets into acute congestive heart failure. Patient has severe LV dysfunction with an ejection fraction of 15 to 20% with diffuse LV hypokinesis with more pronounced regional wall abnormality in the anteroseptal region. She has severe mitral regurgitation as well as an ASD defect. Repeat troponin was obtained tonight continues to be in the indeterminate range at 0.06. Exam Const General: cooperative, no acute distress and anxious Nutritional Appearance: average body habitus Orientation: alert, awake and oriented x3 Chest Chest: tenderness other (Over left posterior lateral chest wall and infrascapular area) Resp Effort & Inspection: normal respiratory effort and able to speak in complete sentences Auscultation: clear to auscultation bilaterally Cardio Jugular venous pressure: no JVD Palpation: heave Rate: tachycardic Rhythm: regular rhythm Heart Sounds: S1 normal, S2 normal and murmur systolic early, blowing, III/ and at the apex GI Inspection: normal to inspection Palpation: soft Percussion: normal to percussion Auscultation: normal bowel sounds Extrem General: normal to inspection, full ROM, normal capillary refill and no clubbing, cyanosis or edema Psych Appearance: grossly normal Speech and Movement: speech and movement normal Mood: anxious mood Affect: anxious affect Attitude: cooperative Thought Process: normal Thought Content: normal Insight: insight good Judgment: judgment good Objective Objective Clinical Data: Abnormal lab results 08/22/18 08/22/18 08/22/18 Range/Units 08:55 08:55 08:55 RBC 3.85 L (4.00-5.20) m/cumm MCV 102.6 H (80-95) fL MCH 35.6 H (27.0-33.0) pg Absolute Neutrophils 6.78 H (1.2-6.7) k/cumm Absolute Monocytes 0.75 H (0.11-0.7) k/cumm D-Dimer 979 H (<500) ng/mlFEU Glucose 118 H (70-100) mg/dL Alkaline Phosphatase 126 H (46-116) U/L C-Reactive Protein (0.0-0.3) mg/dL NT-Pro-B Natriuret Pep ( - 299) pg/mL 08/22/18 Range/Units 08:55 RBC (4.00-5.20) m/cumm MCV (80-95) fL MCH (27.0-33.0) pg Absolute Neutrophils (1.2-6.7) k/cumm Absolute Monocytes (0.11-0.7) k/cumm D-Dimer (<500) ng/mlFEU Glucose (70-100) mg/dL Alkaline Phosphatase (46-116) U/L C-Reactive Protein 0.94 H (0.0-0.3) mg/dL NT-Pro-B Natriuret Pep 8512 H ( - 299) pg/mL Vital Signs Temperature 37.0 C 08/22/18 23:05 Temperature Source Temporal Artery Scan 08/22/18 23:05 Pulse 93 H 08/22/18 23:40 Pulse Rhythm Regular 08/22/18 16:10 Pulse 104 H 08/22/18 11:50 Respiratory Rate 32 H 08/22/18 22:55 Respiratory Effort Non-Labored 08/22/18 16:10 Respiratory Depth Normal 08/22/18 16:10 Respiratory Pattern Normal 08/22/18 16:10 Blood Pressure 106/75 08/22/18 23:40 Blood Pressure Mean 101 08/22/18 08:46 Blood Pressure Position Sitting 08/22/18 08:45 Pulse Oximetry 95 08/22/18 23:05 Oxygen Delivery Method Nasal Cannula 08/22/18 23:05 Oxygen Flow Rate 2 08/22/18 23:05 Pain Level 0 08/22/18 12:26 Intake & Output 08/21/18 08/22/18 08/22/18 23:59 11:59 23:59 Intake Total 840 / 840 Output Total 1000 / 1000 Balance -160 / -160 Weight 58.967 kg 58.967 kg Intake: IV 360 / 360 Oral 480 / 480 Output: Urine 1000 / 1000 Other: Urine Color Pale Yellow Urine Appearance Clear Urine Odor None Voiding Methods Toilet Laboratory Results WBC 9.88 k/cumm (4.4-10.8) 08/22/18 08:55 RBC 3.85 m/cumm (4.00-5.20) L 08/22/18 08:55 Hgb 13.7 g/dL (12.0-15.5) 08/22/18 08:55 Hct 39.5 % (36.0-46.0) 08/22/18 08:55 MCV 102.6 fL (80-95) H 08/22/18 08:55 MCH 35.6 pg (27.0-33.0) H 08/22/18 08:55 MCHC 34.7 g/dL (32.0-36.0) 08/22/18 08:55 RDW 12.7 % (11.7-14.6) 08/22/18 08:55 Plt Count 240 x1000/uL (130-400) 08/22/18 08:55 MPV 9.1 fL (8.0-11.0) 08/22/18 08:55 Immature Gran % 0.3 08/22/18 08:55 Neutrophils % 68.6 08/22/18 08:55 Lymphocytes % 22.1 08/22/18 08:55 Monocytes % 7.6 08/22/18 08:55 Eosinophils % 0.9 08/22/18 08:55 Basophils % 0.5 08/22/18 08:55 Absolute Neutrophils 6.78 k/cumm (1.2-6.7) H 08/22/18 08:55 Absolute Lymphocytes 2.18 k/cumm (1.2-3.4) 08/22/18 08:55 Absolute Monocytes 0.75 k/cumm (0.11-0.7) H 08/22/18 08:55 Absolute Eosinophils 0.09 k/cumm (0.0-0.7) 08/22/18 08:55 Absolute Basophils 0.05 k/cumm (0.0-0.2) 08/22/18 08:55 D-Dimer 979 ng/mlFEU (<500) H 08/22/18 08:55 Sodium 140 mmol/L (136-145) 08/22/18 08:55 Potassium 4.0 mmol/L (3.5-5.1) 08/22/18 08:55 Chloride 107 mmol/L (98-107) 08/22/18 08:55 Carbon Dioxide 22.4 mmol/L (21.0-32.0) 08/22/18 08:55 Anion Gap 10.6 mmol/L (3-11) 08/22/18 08:55 BUN 12 mg/dL (7-18) 08/22/18 08:55 Creatinine 0.89 mg/dL (0.55-1.02) 08/22/18 08:55 Estimated GFR/1.73 m2 >= 60.00 (mL/min/1.73m2) 08/22/18 08:55 Glucose 118 mg/dL (70-100) H 08/22/18 08:55 Calcium 9.9 mg/dL (8.5-10.1) 08/22/18 08:55 Magnesium 1.8 mg/dL (1.8-2.4) 08/22/18 18:30 Total Bilirubin 0.3 mg/dL (0.2-1.0) 08/22/18 08:55 AST 19 U/L (15-37) 08/22/18 08:55 ALT 25 U/L (12-78) 08/22/18 08:55 Alkaline Phosphatase 126 U/L (46-116) H 08/22/18 08:55 Troponin I 0.06 ng/mL (0.00-0.06) 08/22/18 22:35 C-Reactive Protein 0.94 mg/dL (0.0-0.3) H 08/22/18 08:55 NT-Pro-B Natriuret Pep 8512 pg/mL (-299) H 08/22/18 08:55 Total Protein 8.2 g/dL (6.4-8.2) 08/22/18 08:55 Albumin 3.6 g/dL (3.4-5.0) 08/22/18 08:55 TSH 3.55 uIU/mL (0.358-3.74) 08/22/18 08:55
[2018-08-23] VITALS (110 sets, daily range): BP systolic 77–107; BP diastolic 52–78; PULSE 83–124; RESP 12–34; TEMP 36.5–37.1; O2SAT 90–98
[2018-08-23] MEDS: Normal Saline Flush 10 ML SYR IVP ×2 (00:38→09:42)
[2018-08-23] MEDS: LORazepam 2 MG/ML VIAL 1 MG IVP (00:38)
[2018-08-23] MEDS: ESMOLOL 2,500 MG/250 ML BAG 17.69 MG IV (00:51)
[2018-08-23 02:43] LABS: PTT Activated 24.7 sec (21.0-31.4); Prothrombin Time 10.4 sec (9.3-11.0)
[2018-08-23] MEDS: ESMOLOL 2,500 MG/250 ML BAG 53.07 MG IV (05:35)
[2018-08-23 07:12] LABS: Abs Immature Grans 0.02 k/cumm (0.0-0.09); Absolute Basophil Count 0.05 k/cumm (0.0-0.2); Absolute Eosinophil Count 0.15 k/cumm (0.0-0.7); Absolute Lymphocyte Count 2.22 k/cumm (1.2-3.4); Absolute Monocyte Count 0.54 k/cumm (0.11-0.7); Absolute Neutrophil Count 6.19 k/cumm (1.2-6.7); Basophils % 0.5; Eosinophils % 1.6; HCT 37.7 % (36.0-46.0); HGB 12.3 g/dL (12.0-15.5); Immature Grans % 0.2; Lymphocytes % 24.2; Mean Corp. HGB Concentration 32.6 g/dL (32.0-36.0); Mean Corpuscular Hemoglobin 34.2 pg (27.0-33.0); Mean Corpuscular Volume 104.7 fL (80-95); Mean Platelet Volume 9.3 fL (8.0-11.0); Monocytes % 5.9; Neutrophils % 67.6; Platelet Count 249 x1000/uL (130-400); RBC Distribution Width 12.8 % (11.7-14.6); White Blood Cell Count 9.17 k/cumm (4.4-10.8)
[2018-08-23 07:25] LABS: Anion Gap 10.8 mmol/L (3-11); BUN 15 mg/dL (7-18); CO2 23.2 mmol/L (21.0-32.0); CREATININE 0.89 mg/dL (0.55-1.02); Calcium 8.6 mg/dL (8.5-10.1); Chloride 103 mmol/L (98-107); Glucose 112 mg/dL (70-100); Magnesium 2.5 mg/dL (1.8-2.4); Sodium 137 mmol/L (136-145)
[2018-08-23 07:26] LABS: Troponin I 0.02 ng/mL (0.00-0.06)
--- NOTE | 2018-08-23 08:53 | NUR.NOTE ---
[phone] Dr. Martínez was in the unit for AM nursing rounds and states that [facility] has accepted for transfer in 24-48 hours. He has a [place] [facility] [place]. He wants the patient's breakfast held for now until we know if [facility] [place] this [place]. [phone] Face sheet and EKGs from prior and this visit was [place] [facility] [phone] and [facility] transfer center [phone]. Nursing Note:
--- NOTE | 2018-08-23 09:26 | NUR.NOTE ---
Lab was in to draw the patient's blood at 0900 and after trying 3 times with no success she came and told me she was getting someone else. 2nd Lab person has arrived and was able to get a sample. Nursing Note:
[2018-08-23] MEDS: Aspirin 81 MG CHEW 162 MG PO (09:41)
[2018-08-23] MEDS: Furosemide 20 MG TAB PO (09:41)
[2018-08-23 09:48] LABS: PTT Activated 46.2 sec (21.0-31.4)
--- NOTE | 2018-08-23 09:52 | NUR.NOTE ---
I went in the room room to give patient her medications and was talking to the patient on waiting for the associate professor of library science to review the EKGs we sent to [facility]. The patient was teary eyed and I offered emotional support and then asked what the biggest stressor to her was. She verbalized that her condition was just more than she had expected (worse) and it was overwhelming. I allowed her to talk and cry some and supported her in the emotions of stress, uncertainty,and the feelings of loss of control. I encouraged the patient to ask questions, express concerns and emotions and told her that it was okay and understandable for her to feel as she did. She has been updated as much as I know in the plan of care, medications, and waiting for transfer. The patient was appreciative and was no longer crying and returned to resting when I left. and Nursing Note:
--- NOTE | 2018-08-23 11:05 | NUR.NOTE ---
Dr. Martínez came to round and Mt was called at his and the patient's request to be present. Dr. Martínez gave full explanation of what we know thus far for the ECHO results, CT, CXR, and the possible procedures that the patient will have at a tertiary care center. It was explained that the patient's heart is in a critical position but that the patient is stable at this time. There were no further questions from the patient or Mt. We are still waiting on a call for a bed. [facility] [place] is having their bed round meeting right now. Nursing Note:
--- NOTE | 2018-08-23 13:41 | PDOC.CMIN ---
- If Service Date Differs Date of service: 08/23/18 Time of Service: 13:41 Care Management Initial Assess REASON FOR HOSPITALIZATION:: CHF PAST MEDICAL HISTORY/PAST SURGICAL HISTORY:: Tobacco abuse (Chronic). Cephalgia (Chronic 10/05/14). 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 Hypertrophy of nasal turbinates (Chronic 10/05/14). Migraine (Chronic 10/15/12). Left bundle branch block (LBBB) on electrocardiogram (Chronic). Left bundle branch block (Acute). Tobacco use (Acute). Vitamin D deficiency (Acute). Cervicalgia (Chronic). Depression (Chronic). H/O: hysterectomy (Chronic). Headache, chronic migraine without aura (Chronic). Migraine with aura, not intractable, without status migrainosus (Chronic). Stroke (Chronic). Surgical History. History of PREVIOUS FUNCTIONAL STATUS/SOCIAL/FAMILY SUPPORTS:: Rufina lives in [place], [place] she has two children her youngest is 15 and still in school. She states at baseline she is indepedent with ADL's and care for herself. She identifies her support person as her SO Mt. CURRENT FUNCTIONAL STATUS:: Rufina is sitting up on the side of the bed when CM arrives her SO is present and she agrees to his presense in the room during CM assessment. Rufina does express her concerns r/t new diagnosis. She does not want her youngest daughter to worry about her and has not shared al information with her. Rufina describes feeling overwhelmed and is not able to engage in long conversaton at this time. ADVANCE DIRECTIVES:: None on file Has patient been provided with information about the portal?: Yes Did the patient sign up for the portal?: No CODE STATUS:: Full Code INSURANCE COVERAGE / FINANCIAL ISSUES:: [employer] CURRENT HOME/COMMUNITY SERVICES/EQUIPMENT:: None at this time PRIMARY CARE PHYSICIAN:: Elisa Saini POTENTIAL DISCHARGE NEEDS:: Transfer to [facility] waiting for bed confirmation. PATIENT/FAMILY EDUCATION NEEDS:: Education related to transfer and anticiapted time. Mt would like to be contacted once confirmation of bed is obtained if he is not present. ANTICIPATED BARRIERS TO DISCHARGE:: Bed confirmation from receiving facility. TRANSPORTATION:: Ambulance coordianted by RN scanning supervisor. PLAN:: Rufina will be transfered once a bed becomes available. CM will continue to provide support to patient during transtion.
--- NOTE | 2018-08-23 14:07 | INITIAL_ITS ---
- If Service Date Differs Date of service: 08/23/18 Time of Service: 13:41 Care Management Initial Assess REASON FOR HOSPITALIZATION:: CHF PAST MEDICAL HISTORY/PAST SURGICAL HISTORY:: Tobacco abuse (Chronic). Cephalgia (Chronic 10/05/14). 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 Hypertrophy of nasal turbinates (Chronic 10/05/14). Migraine (Chronic 10/15/12). Left bundle branch block (LBBB) on electrocardiogram (Chronic). Left bundle branch block (Acute). Tobacco use (Acute). Vitamin D deficiency (Acute). Cervicalgia (Chronic). Depression (Chronic). H/O: hysterectomy (Chronic). Headache, chronic migraine without aura (Chronic). Migraine with aura, not intractable, without status migrainosus (Chronic). Stroke (Chronic). Surgical History. History of C- section PREVIOUS FUNCTIONAL STATUS/SOCIAL/FAMILY SUPPORTS:: Rufina lives in [place], [place] she has two children her youngest is 15 and still in school. She states at baseline she is indepedent with ADL's and care for herself. She identifies her support person as her SO Mt. CURRENT FUNCTIONAL STATUS:: Rufina is sitting up on the side of the bed when CM arrives her SO is present and she agrees to his presense in the room during CM assessment. Rufina does express her concerns r/t new diagnosis. She does not want her youngest daughter to worry about her and has not shared al information with her. Rufina describes feeling overwhelmed and is not able to engage in long conversaton at this time. ADVANCE DIRECTIVES:: None on file Has patient been provided with information about the portal?: Yes Did the patient sign up for the portal?: No CODE STATUS:: Full Code INSURANCE COVERAGE / FINANCIAL ISSUES:: [employer] CURRENT HOME/COMMUNITY SERVICES/EQUIPMENT:: None at this time PRIMARY CARE PHYSICIAN:: Elisa Saini POTENTIAL DISCHARGE NEEDS:: Transfer to [facility] for bed confirmation. PATIENT/FAMILY EDUCATION NEEDS:: Education related to transfer and anticiapted time. Mt would like to be contacted once confirmation of bed is obtained if he is not present. ANTICIPATED BARRIERS TO DISCHARGE:: Bed confirmation from receiving facility. TRANSPORTATION:: Ambulance coordianted by RN cloth bleaching supervisor. PLAN:: Rufina will be transfered once a bed becomes available. CM will continue to provide support to patient during transtion.
--- NOTE | 2018-08-23 14:27 | W.PM.DS.N ---
Date of service: 08/23/18 Time of Service: 14:27 DS: Diagnosis Discharge Diagnosis (1) Atypical chest pain: Status: Acute (2) Ischemic dilated cardiomyopathy: Status: Acute (3) Severe mitral regurgitation: Status: Acute (4) Ostium secundum atrial septal defect: Status: Chronic Discharge Plan Disposition Patient Disposition: [facility] Condition: Stable Discharge Details Chief Complaint: RespSymp Reason For Visit: CHF Admit Date/Time: 08/22/18 10:45 Admit Provider: Hebert Martínez Attending Provider: Hebert Martínez Primary Care Provider: Elisa Saini ED Provider: Amos Pham Hospital Course Hospital Course: Chief Complaint: Dyspnea HPI: 47 year old woman with a past medical history significant for COPD and ongoing Tobacco Use, admitted from [facility] Emergency Department on 08/22 with complaint of worsening dyspnea. Ms. Denney has a prior history of Tobacco abuse and COPD. She has had 2 prior episodes of Spontaneous Pneumothorax (bilateral), and has evidence of a LBBB on ECG. Her other history includes a prior CVA attributed to use of OCP with concurrent tobacco abuse and potential 'hole in the heart', as well as a history of migraines. The patient presented to the ED with a reported 2 week history of dyspnea, including symptoms that subjectively worsened when laying supine. She denied cough, change in sputum, fevers, or chest pain. Work-up in the ED included labwork that was significant for an elevated Pro-BNP of 8512, and a CXR and CT of the chest that were essentially unremarkable (Underlying COPD, Scarring, and blebs), and ECG with unchanged LBBB. She was referred for admission for work-up of potential new onset CHF. An ECHO was obtained on 08/22/2018 and profoundly abnormal - LVEF was noted to be severely reduced at 15%, with severe diffuse hypokinesis with regional variations, as well as severe hypokinesis of the anteroseptal myocardium. The patient also had Severe MR, Severely dilated LA, moderate L-->R shunt through a Secundum ASD, and PHTN with pressures in the 45-55 mmHg range. Her Troponins trended out negative. Given the severity of her findings, Ms. Denney is being transferred for inpatient work-up of her Cardiomyopathy. She was diuresed slightly using 20mg IV Lasix BID, and feels improved this morning. Since she is not is significant failure she was started on minimal dose DEMIAN-I, but held off on BB therapy at this time. Also initiated high potency statin (incase of ischemic etiology for patient's cardiomyopathy) and continued her daily aspirin. Discharge medications: 1. Acetaminophen 650mg Q4prn 2. Duoneb 3. Amitriptyline 100mg QHS 4. Atorvastatin 40mg QHS 5. Captopril 6.25mg BID 6. Cyproheptadine 4mg Q6 prn 7. Docusate 100mg TID prn 8. Furosemide 20mg PO daily 9. Mylanta 30ml Q2 prn 10. Nicotrol 30 IH Q2 prn 11. Miralax daily prn Home Meds and New Rx's Prescriptions: Continued Aimovig Autoinjector 70 mg/mL auto-injector 70 mg SC QMONTH Qty: 1 RF: 2 cyproheptadine 4 mg tablet 4 mg PO Q6H PRN (Reason: migraine headache) Qty: 30 RF: 2 ibuprofen 100 MG/5 ML suspension 200 mg PO PRN RF: 0 naproxen sodium [Aleve] 220 MG tablet 220 mg PO Q12H PRN RF: 0 Aspirin/Acetaminophen/Caffeine [Excedrin Migraine Caplet] 1 EACH tablet 1 tab PO PRN PRNRF: 0 amitriptyline 25 mg tablet 100 mg PO QHS RF: 0 Discharge Instructions Activity:: OOB to Chair Diet:: Low Sodium Discharge Orders Discharge Orders: Discharge Order (Routine); Ordered 08/23/18 Ordered By: Hebert Martínez Exam Narrative Exam Narrative: General: Patient appears comfortable, AAOX3, NAD Neck: Supple CV: Regular, tachycardic, S1S2, 3/6 LLSB murmur. Pulmonary: Previously mild Bibasilar crackles appear improved, no wheezing or rhonchi. Abdomen: + Bowel Sounds, soft, nontender, nondistended Vascular: No lower extremity edema Psych: Normal mood and affect. DS: Data Vitals/I&O Vitals and I&O: Vital Signs Temperature 36.8 C 08/23/18 13:15 Temperature Source Temporal Artery Scan 08/23/18 13:15 Pulse 93 H 08/23/18 13:01 Pulse Rhythm Regular 08/22/18 16:10 Pulse 93 H 08/23/18 13:50 Respiratory Rate 26 H 08/23/18 13:50 Respiratory Effort Non-Labored 08/23/18 13:15 Respiratory Depth Normal 08/23/18 13:15 Respiratory Pattern Normal 08/23/18 13:15 Blood Pressure 93/65 L 08/23/18 13:01 Blood Pressure Mean 71 08/23/18 13:01 Blood Pressure Position Supine 08/23/18 00:15 Pulse Oximetry 90 L 08/23/18 08:01 Oxygen Delivery Method Room Air 08/23/18 04:42 Oxygen Flow Rate 0 08/23/18 04:42 Pain Level 0 08/23/18 13:15 Intake & Output 08/22/18 08/23/18 08/23/18 23:59 11:59 23:59 Intake Total 840 / 840 488.388 / 888.388 400 / 888.388 Output Total 1000 / 1000 1000 / 1475 475 / 1475 Balance -160 / -160 -511.612 / -586.612 -75 / -586.612 Weight 58.967 kg 58.967 kg Intake: IV 360 / 360 408.388 / 408.388 Oral 480 / 480 80 / 480 400 / 480 Output: Urine 1000 / 1000 1000 / 1475 475 / 1475 Other: Urine Color Pale Light Janae Light Janae Yellow Urine Appearance Clear Cloudy Cloudy Urine Odor None Strong Normal Comment Pt has not urinated since coming to the unit. When I asked about it, she did not need to go at this time Voiding Methods Toilet Bedside Commode Bedside Commode Completed studies during hospitalization [Text1]: Exam(s) 08/22/2018 a RAD:XR chest 2V PA & lateral SYMPTOM/DIAGNOSIS: SOB, H/O PNEUMOTHORAX PA AND LATERAL CHEST: Pulmonary hyperinflation is demonstrated, the findings are consistent with COPD. Apical pulmonary and pleural scarring is identified. No infiltrate is seen. There is no evidence of a pneumothorax or pleural effusion. The heart is top limits of normal in size. The hilar structures, mediastinum and tracheal air column are intact. SUMMARY: Findings consistent with COPD and pulmonary scarring. No evidence of acute cardiopulmonary disease. Exam(s) 08/22/[address]:CT chest PE CTA SYMPTOM/DIAGNOSIS: RT CHEST DISCOMFORT, SOB, ELEVATED D DIMER, TACHYCARDIA PE CHEST CT: CT angiography was performed with multi slice acquisition and multi planar and 3D reconstruction. The study was carried out according to the usual protocol with an intravenous infusion of 100 cc's of Omnipaque 350. Centrilobular emphysematous changes are noted throughout the lungs and there is a large bleb in the left lower lobe. Bilateral pleural thickening is identified and I could not exclude a small bilateral pleural effusion. There is no infiltrate. There is no evidence of pulmonary embolic disease. The heart is enlarged. There is no evidence of a pericardial effusion. SUMMARY: COPD, no evidence of PE. A tiny bilateral pleural effusion could not be excluded. Exam(s) a US:US echocardiogram Date of study: 08/22/2018 Transthoracic Echocardiography M-mode, complete 2D, complete spectral Doppler, and color Doppler *STUDY CONCLUSIONS* Summary: 1. Left ventricle: The cavity size was moderately dilated. Wall thickness was normal. The estimated ejection fraction was 15-20%. Severe diffuse hypokinesis with regional variations. Severe hypokinesis of the anteroseptal myocardium. No evidence of thrombus. 2. Mitral valve: There was severe regurgitation directed posteriorly. 3. Left atrium: The atrium was severely dilated. 4. Right ventricle: The cavity size was normal. Wall thickness was normal. Systolic function was normal. 5. Atrial septum: There was a secundum atrial septal defect. There was a moderate [id number]-qy-ummml atrial level shunt. 6. Tricuspid valve: There was moderate regurgitation. 7. Pulmonary arteries: Pulmonary systolic pressure was in the range of 45mm Hg to 55mm Hg. 8. Inferior vena cava: The vessel was patent and normal in size. The respirophasic diameter changes were in the normal range (greater than or equal to 50%), consistent with normal central venous pressure. Labs on day of discharge: Labs from last 24 hours 08/23/18 08/23/18 08/23/18 09:25 06:11 06:11 WBC 9.17 RBC 3.60 L Hgb 12.3 Hct 37.7 MCV 104.7 H MCH 34.2 H MCHC 32.6 RDW 12.8 Plt Count 249 MPV 9.3 Immature Gran % 0.2 Neutrophils % 67.6 Lymphocytes % 24.2 Monocytes % 5.9 Eosinophils % 1.6 Basophils % 0.5 Absolute Neutrophils 6.19 Absolute Lymphocytes 2.22 Absolute Monocytes 0.54 Absolute Eosinophils 0.15 Absolute Basophils 0.05 PT INR APTT 46.2 H D Sodium Potassium Chloride Carbon Dioxide Anion Gap BUN Creatinine Estimated GFR/1.73 m2 Glucose Calcium Magnesium Troponin I 0.02 08/23/18 08/23/18 08/22/18 06:11 02:18 22:35 WBC RBC Hgb Hct MCV MCH MCHC RDW Plt Count MPV Immature Gran % Neutrophils % Lymphocytes % Monocytes % Eosinophils % Basophils % Absolute Neutrophils Absolute Lymphocytes Absolute Monocytes Absolute Eosinophils Absolute Basophils PT 10.4 INR 1.0 APTT 24.7 Sodium 137 Potassium 4.0 Chloride 103 Carbon Dioxide 23.2 Anion Gap 10.8 BUN 15 Creatinine 0.89 Estimated GFR/1.73 m2 >= 60.00 Glucose 112 H Calcium 8.6 Magnesium 2.5 H Troponin I 0.06 08/22/18 08/22/18 08/22/18 18:30 18:30 14:10 WBC RBC Hgb Hct MCV MCH MCHC RDW Plt Count MPV Immature Gran % Neutrophils % Lymphocytes % Monocytes % Eosinophils % Basophils % Absolute Neutrophils Absolute Lymphocytes Absolute Monocytes Absolute Eosinophils Absolute Basophils PT INR APTT Sodium Potassium Chloride Carbon Dioxide Anion Gap BUN Creatinine Estimated GFR/1.73 m2 Glucose Calcium Magnesium 1.8 Troponin I 0.06 0.06 [facility] Medical History Tobacco abuse (Chronic) Cephalgia (Chronic 10/05/14) 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) Hypertrophy of nasal turbinates (Chronic 10/05/14) Migraine (Chronic 10/15/12) Left bundle branch block (LBBB) on electrocardiogram (Chronic) Left bundle branch block (Acute) Tobacco use (Acute) Vitamin D deficiency (Acute) Cervicalgia (Chronic) Depression (Chronic) H/O: hysterectomy (Chronic) Headache, chronic migraine without aura (Chronic) Migraine with aura, not intractable, without status migrainosus (Chronic) Stroke (Chronic) Surgical History History of (Chronic) Social History Smoking/Tobacco Use Status: Current every day Alcohol Intake: never Drug use: Never Do you feel safe at home: Yes Do you feel safe in your relationship?: Yes
== END 2018-08-23 16:05 | disposition short-term general hospital (02) | DRG 303 ==
LOC: ER 11:16 → MS 12:12 → ICU 08-23 00:08
PROVIDERS: Internal Medicine; Admitting Provider Internal Medicine; Emergency Provider Emergency Medicine; PCP Nurse Practitioner; Visit Provider Internal Medicine
DX: I25.5 Ischemic cardiomyopathy (principal); Q21.1 Atrial septal defect; F07.89 Other personality and behavioral disorders due to known physiological condition; I34.0 Nonrheumatic mitral (valve) insufficiency; J44.9 Chronic obstructive pulmonary disease, unspecified; F17.210 Nicotine dependence, cigarettes, uncomplicated; Z86.73 Personal history of transient ischemic attack (TIA), and cerebral infarction without residual deficits; I51.7 Cardiomegaly
CPT/HCPCS: 36415; 71275; 80048; 80053; 93005; 94640; 96361; 96374; 96375; 99222; 99239; 99285; 99356; J1650; 71046; 83735; 83880; 84443; 84484; 85025; 85379; 85610; 85730; 86140; 93010; 93306; 99284; J1941; J2060; J3490; J7620

== ENCOUNTER 2018-10-25 13:55 | Outpatient (CLI) | payer OTHER, SELFPAY ==
[2018-10-25 15:36] LABS: BUN 11 mg/dL (7-18); CREATININE 0.93 mg/dL (0.55-1.02); Chloride 101 mmol/L (98-107); Glucose 99 mg/dL (70-100); Potassium 4.7 mmol/L (3.5-5.1); Sodium 137 mmol/L (136-145)
[2018-10-25 15:42] LABS: Calcium 9.6 mg/dL (8.5-10.1)
== END 2018-10-25 14:15 ==
PROVIDERS: PCP Nurse Practitioner; Visit Provider Nurse Practitioner Adult Health
DX: I50.22 Chronic systolic (congestive) heart failure (principal)
CPT/HCPCS: 36415; 80048

== ENCOUNTER 2018-11-14 15:18 | Outpatient (CLI) | payer OTHER, SELFPAY ==
[2018-11-14 16:00] LABS: Anion Gap 6.9 mmol/L (3-11); BUN 10 mg/dL (7-18); CO2 26.1 mmol/L (21.0-32.0); CREATININE 1.04 mg/dL (0.55-1.02); Calcium 9.4 mg/dL (8.5-10.1); Chloride 103 mmol/L (98-107); Estimated GFR 56.56 (mL/min/1.73m2); Glucose 96 mg/dL (70-100); Potassium 4.3 mmol/L (3.5-5.1); Sodium 136 mmol/L (136-145)
== END 2018-11-14 15:38 ==
PROVIDERS: PCP Nurse Practitioner; Visit Provider Nurse Practitioner Adult Health
DX: I50.22 Chronic systolic (congestive) heart failure (principal)
CPT/HCPCS: 36415; 80048

== ENCOUNTER 2018-12-20 08:17 | Outpatient (CLI) | payer OTHER, SELFPAY ==
[2018-12-20 09:17] LABS: Anion Gap 7.9 mmol/L (3-11); BUN 15 mg/dL (7-18); CO2 25.1 mmol/L (21.0-32.0); Calcium 9.5 mg/dL (8.5-10.1); Chloride 106 mmol/L (98-107); Estimated GFR 59.18 (mL/min/1.73m2); Glucose 98 mg/dL (70-100); NT-proBNP 3011 pg/mL; Potassium 4.2 mmol/L (3.5-5.1); Sodium 139 mmol/L (136-145)
== END 2018-12-20 08:37 ==
PROVIDERS: PCP Nurse Practitioner; Visit Provider Nurse Practitioner Adult Health
DX: I50.22 Chronic systolic (congestive) heart failure (principal)
CPT/HCPCS: 36415; 80048; 83880

== ENCOUNTER 2019-02-13 15:33 | Outpatient (CLI) | payer OTHER, SELFPAY ==
[2019-02-13 17:32] LABS: Anion Gap 9.6 mmol/L (3-11); BUN 9 mg/dL (7-18); CO2 27.4 mmol/L (21.0-32.0); CREATININE 0.77 mg/dL (0.55-1.02); Calcium 9.4 mg/dL (8.5-10.1); Chloride 103 mmol/L (98-107); Glucose 79 mg/dL (74-106); NT-proBNP 2179 pg/mL (<300); Sodium 140 mmol/L (136-145)
== END 2019-02-13 15:53 ==
PROVIDERS: PCP Nurse Practitioner; Visit Provider Nurse Practitioner Adult Health
DX: I50.22 Chronic systolic (congestive) heart failure (principal)
CPT/HCPCS: 36415; 80048; 83880

== ENCOUNTER 2019-05-13 02:04 | Outpatient (CLI) | payer OTHER, SELFPAY ==
--- NOTE | 2019-05-13 10:20 | DI.US_ITS ---
APPROVED REPORT EXAM: Comprehensive 2D, Doppler, and color-flow Echocardiogram Patient Location: Out-Patient Emergency Medicine Medical Director: Susie Gonzalez RDCS (AE) Rhythm: LBBB Indications: systolic heart failure chronic i50.22 Conclusion Normal left ventricular chamber size and wall thickness. Estimated ejection fraction is 30 to 35%. There is global hypokinesis There is no chamber enlargement Mitral leaflets are thickened with moderate regurgitation There is mild tricuspid regurgitation Aortic valve is structurally normal Wall motion Left Ventricle The left ventricle is normal size. Left ventricular systolic function is decreased. There is normal l eft ventricular wall thickness. global hypokinesis indeterminate LVEF is 30-35%. Right Ventricle The right ventricle is normal size. A device wire is noted The right ventricular systolic function is normal. Atria The left atrium size is normal. The right atrium size is normal. A device wire is noted. Aortic Valve The aortic valve is normal in structure. There is no aortic valvular stenosis. No aortic regurgitatio n is present. Mitral Valve Mitral valve leaflets are mildly thickened. Moderate mitral regurgitation. Tricuspid Valve The tricuspid valve is normal in structure. Mild tricuspid regurgitation. Great Vessels The aortic root is normal in size. The IVC is dilated. The IVC collapses >50% with inspiration. Pericardium There is no pericardial effusion.
[2019-05-13 12:33] LABS: Anion Gap 8.4 mmol/L (3-11); BUN 17 mg/dL (7-18); CO2 29.6 mmol/L (21.0-32.0); Calcium 9.2 mg/dL (8.5-10.1); Chloride 100 mmol/L (98-107); Estimated GFR 59.18 (mL/min/1.73m2); Glucose 95 mg/dL (74-106); NT-proBNP 327 pg/mL (<300); Potassium 4.2 mmol/L (3.5-5.1); Sodium 138 mmol/L (136-145)
== END 2019-05-13 02:24 ==
PROVIDERS: PCP Nurse Practitioner; Visit Provider Nurse Practitioner Adult Health
DX: I50.22 Chronic systolic (congestive) heart failure (principal); I44.7 Left bundle-branch block, unspecified; I34.0 Nonrheumatic mitral (valve) insufficiency; I25.5 Ischemic cardiomyopathy
CPT/HCPCS: 36415; 80048; 83880; 93306

== ENCOUNTER 2019-11-20 08:50 | Outpatient (CLI) | payer OTHER, SELFPAY ==
[2019-11-20 16:24] LABS: Anion Gap 13.2 mmol/L (3-11); BUN 13 mg/dL (7-18); CO2 23.8 mmol/L (21.0-32.0); CREATININE 0.91 mg/dL (0.55-1.02); Calcium 9.7 mg/dL (8.5-10.1); Chloride 99 mmol/L (98-107); Glucose 121 mg/dL (74-106); NT-proBNP 207 pg/mL (<300); Sodium 136 mmol/L (136-145)
== END 2019-11-20 09:10 ==
PROVIDERS: PCP Nurse Practitioner; Visit Provider Nurse Practitioner Adult Health
DX: I50.22 Chronic systolic (congestive) heart failure (principal)
CPT/HCPCS: 36415; 80048; 83880

== ENCOUNTER 2020-05-25 01:44 | Outpatient (CLI) | payer OTHER, SELFPAY ==
--- NOTE | 2020-05-25 13:00 | DI.US_ITS ---
APPROVED REPORT EXAM: Comprehensive 2D, Doppler, and color-flow Echocardiogram Patient Location: Out-Patient Staple Fiber Washer: Maggie García RDCS (AE) Indications: Heart failure, Reduced EF Other Information Study Quality: Adequate Conclusion Left Ventricle : The left ventricle is normal size. Left ventricular systolic function is mildly decr eased. There is normal left ventricular wall thickness. There is global hypokinesis of the left ventr icle. The diastolic function is abnormal. LVEF is 45%. Right Ventricle : The right ventricle is normal size. The right ventricular systolic function is norm al. The RVSP is 30.9mmHg. Atria : The left atrium size is normal. The right atrium size is normal. Mitral Valve : The mitral valve is normal in structure. Mild mitral regurgitation. No evidence of shira ral valve stenosis. Great Vessels : The aortic root is normal in size. The ascending aorta is normal in size. Aortic arch is normal in caliber. IVC is normal in size and collapses >50% with inspiration. Please see remainder of study for further details. Compared to study from 05/13/2019: The patient's ejection fraction is increased slightly and the degre e of mitral regurgitation has decreased. Wall motion Left Ventricle The left ventricle is normal size. Left ventricular systolic function is mildly decreased. There is n ormal left ventricular wall thickness. There is global hypokinesis of the left ventricle. The diastol ic function is abnormal. There is no ventricular septal defect visualized. LVEF is 45%. Right Ventricle The right ventricle is normal size. The right ventricular systolic function is normal. The RVSP is 30 .9mmHg. Atria The left atrium size is normal. The right atrium size is normal. The interatrial septum is intact wit h no evidence for an atrial septal defect. Aortic Valve The aortic valve is normal in structure. Aortic valve is trileaflet. There is no aortic valvular sten osis. No aortic regurgitation is present. Mitral Valve The mitral valve is normal in structure. No evidence of mitral valve stenosis. Mild mitral regurgitat ion. Tricuspid Valve The tricuspid valve is normal in structure. There is no tricuspid valve stenosis. Mild tricuspid regu rgitation. Pulmonic Valve The pulmonary valve is normal in structure. There is no pulmonic valvular stenosis. There is no pulmo kelly valvular regurgitation. Great Vessels The aortic root is normal in size. The ascending aorta is normal in size. Aortic arch is normal in ca liber. IVC is normal in size and collapses >50% with inspiration. Pericardium There is no pericardial effusion. 2D Dimensions IVSD d PLAX 0.82 cm F: 0.6-1.0 LV Vol A2C d MOD 65.6 mL LVPW d PLAX 0.84 cm F: 0.6 - 1.0 LV Vol A4C d MOD 73.7 mL LVID d PLAX 4.12 cm F: 3.8 - 5.2 LA vol/ BSA A2C s A-L 26.4 mL/m2 LVDs 3.20 cm F: 2.2 - 3.5 LA vol/ BSA A4C s A-L 21.4 mL/m2 Ao Root d 2.92 cm F: 2.7 - 3.3 LA Vol/ BSA Biplane s A-L 24.0 mL/m2 RA Area A4C 8.69 cm2 LA Area A4C s MOD 13.94 cm2 RA Vol/ BSA A4C s A-L 8.7 mL/m2 LA Area A2C s MOD 15.64 cm2 Ao Asc Diam d 2.87 cm F: 2.3 - 3.1 LV EF A4C MOD 45.9 % LV EF Teichholz 44.3 % LV EF A2C MOD 45.3 % LVEF (Michaud's) 47.64 % F: 54 - 74 LV EF Biplane MOD 47.6 % LV Volume 59.94 mL F: 46 - 106 SV 36.06 mL LV Volume Index 35.05 mL/m2 F: 29 - 61 SV Index 21.05 mL/m2 LV Vol Biplane MOD 75.7 mL FS 21.65 % M-Mode TAPSE 1.82 cm (M/F) >1.7 LV Diastology MV E' medial 0.052 (>0.07 m/s) E/A Ratio 0.8 LV E/e MED 14.05 (<14) MV E Vmax 0.73 (0.4-1.3 m/s) MV E' lateral 0.094 (>0.1 m/s) MV A Vmax 0.90 (0.4-1.3 m/s) LV E/e LAT 7.75 (<14) MV E/A Ratio 0.78 MV E/E' medial 14.09 MV E/E' lateral 7.78 Aortic Valve LVOT Area 3.61 cm2 AoV Area Vmax 3.31 cm2 LVOT Vmax 1.18 m/s AoV Area/ BSA (Vmax) 1.93 cm2/m2 LVOT [place]. 0.67 m/s MARK ANTHONY [place]. 2.82 cm2 LVOT Peak Grad 5.6 mmHg MARK ANTHONY [place]. Index 1.65 cm2/m2 LVOT Mean Grad 2.3 mmHg LVOT VTI 0.188 m LVOT Diam s 2.10 cm AoV Vmax 1.29 m/s Velocity Ratio 0.91 AoV [place]. 0.86 m/s AoV Peak Grad 6.6 mmHg LVOT SV 68.09 mL AoV Mean Grad 3.4 mmHg AoV VTI 0.202 m AoV Area VTI 3.38 cm2 AoV Area/ BSA (VTI) 1.97 cm/m2 Mitral Valve MV DT 185 (160-240 msec) MR Vmax 4.79 m/s MV PHT 54 msec MR VTI 1.637 m MV Area PHT 4.11 cm2 MR Peak Grad 91.8 mmHg MV VTI 0.212 m MR Mean Grad 65.8 mmHg MV VTI Annulus 0.215 m MR PISA Radius 0.41 cm MV Area VTI 3.27 (4.0-6.0 cm2) MR EROA 0.08 cm2 MR Aliasing Velocity 0.35 m/s MR PISA 1.05 cm2 Pulmonary Valve PV Vmax 0.94 (0.5-1.5 m/s) RVOT Peak Gr. 1.70 mmHg PV Peak Grad 3.5 mmHg RVOT Mean Gr. 0.95 mmHg PV Mean Grad 1.8 mmHg RVOT VTI 0.125 m PV VTI 0.163 m RVOT Vmax 0.65 m/s Tricuspid Valve TR Peak Grad 27.8 mmHg TR Vmax 2.64 m/s RA Pressure 3.00 mmHg RVSP (TR) 30.9 mmHg
== END 2020-05-25 02:04 ==
PROVIDERS: PCP Nurse Practitioner; Visit Provider Nurse Practitioner Adult Health
DX: I50.20 Unspecified systolic (congestive) heart failure (principal); I34.0 Nonrheumatic mitral (valve) insufficiency
CPT/HCPCS: 93306

== ENCOUNTER 2020-08-25 21:00 | Emergency (ER) | payer OTHER, SELFPAY ==
[2020-08-25] VITALS (25 sets, daily range): BP systolic 136–155; BP diastolic 85–110; PULSE 78–131; RESP 12–20; TEMP 36.7; O2SAT 92–100
--- NOTE | 2020-08-25 21:00 | DI.RAD_ITS ---
Exam(s) XR CHEST 2V PA LATERAL EXAM: XR CHEST 2V PA LATERAL CLINICAL HISTORY: chest pain TECHNIQUE: 2D digital imaging was performed. COMPARISON: CR XR CHEST 2V PA LATERAL from 08/22/2018 FINDINGS: MEDIASTINUM: Normal. HEART: Normal. Interval placement of a cardiac pacer and leads. PULMONARY VASCULATURE: Normal. LUNGS: Stable scarring is seen in the lung apices. No focal consolidating infiltrates are present. The lungs are hyperinflated with flattened diaphragms consistent with underlying COPD. PLEURAL SPACE: No pleural effusion or pneumothorax. BONE:Within normal limits for the patient's age. OTHER FINDINGS:Normal. IMPRESSION: No acute pulmonary findings. DATA REPOSITORY: RADIATION DOSE DELIVERED:
--- NOTE | 2020-08-25 21:00 | RT.EKG_ITS ---
APPROVED REPORT Exam: Resting ECG Reason for Exam: chest pain Patient Location: E HR:103 bpm ECG Measurements Heart Rate 103 AXIS MI 153 P 65 QRSd 136 QRS 19 QT 386 T 104 QTc 505 Conclusion Atrial-sensed ventricular-paced rhythm...ventricular pacing tracks p-waves Biventricular paced rhythm...non-simultaneous bi-vent pacing. No STEMI. I have reviewed and interpreted ECG and agree with software generated interpretation.
--- NOTE | 2020-08-25 21:04 | W.ED.GENAD ---
Discharge Plan Disposition Patient Disposition: HOME Condition: Stable Discharge Details Clinical Impression: Chest pain Primary Care Provider: Elisa Saini ED Provider: Modesto Beebe Home Meds and New Rx's Prescriptions: Continued spironolactone 25 mg tablet 12.5 mg PO DAILY RF: 0 metoprolol succinate 25 mg tablet extended release 24 hr 25 mg PO BID RF: 0 lisinopril 2.5 mg tablet 2.5 mg PO DAILY RF: 0 amitriptyline 50 mg tablet 50 mg PO QHS Qty: 90 RF: 2 amitriptyline 75 mg tablet 75 mg PO QHS Qty: 30 RF: 3 ibuprofen 100 MG/5 ML suspension 200 mg PO PRN RF: 0 naproxen sodium [Aleve] 220 MG tablet 220 mg PO Q12H PRN RF: 0 Aspirin/Acetaminophen/Caffeine [Excedrin Migraine Caplet] 1 EACH tablet 1 tab PO PRN PRNRF: 0 Discharge Instructions Instructions: Chest Pain (ED) Additional Instructions: At this time your work-up does not show any signs of a heart attack currently. Your heart markers are stable, the CT scan of your chest shows no evidence of blood clots or other significant abnormality aside for emphysema. Please continue to cut down on her smoking. Please avoid any spicy foods, greasy foods, or tomato-based foods as this may worsen your reflux symptoms. If you notice any worsening of your symptoms, or any new symptoms such as vomiting, diarrhea, fever, chills, shortness of breath, chest pain, numbness, weakness, or fainting , please return immediately to the emergency department for reevaluation. Please follow up with your primary care provider as soon as possible for reassessment and reevaluation. As always, it was a pleasure participating in your medical care today. Referrals: Elisa Saini [Primary Care Provider] - Discharge Data Discharge Date/Time-TO BE ENTERED AT DEPARTURE: 08/26/20 00:56 Medical Decision Making <SANDRA Hall - Last Filed: 08/26/20 16:01> This is a 49-year-old female with a past medical history of ischemic dilated cardiomyopathy, CHF, pacemaker, presenting to the ER for what she describes as 1 week history of intermittent GERD, now with left-sided chest pain. Currently she reports her acid reflux is a 2 out of 10 and denies any chest pain whatsoever. She took a baby aspirin. Given her past medical history I will initiate a cardiac work-up including a D-dimer. We will provide her with 3 additional baby aspirin, a GI cocktail and IV Protonix. Patient is comfortable with this plan. She appears well, nontoxic. Heart rate during triage is 102 however her heart rate during my evaluation was in the 90s. Chest x-ray read by radiology as negative. Laboratory values reveal minimal nonspecific leukocytosis of 13.32, hemoglobin 14.0 hematocrit 40.4 platelet count 299. INR 1.0. D-dimer 1185. Sodium 139 potassium 3.7 anion gap 11.7, creatinine 1.1 with a GFR of 52.79. Glucose 116. Troponin less than 0.05. BNP 176. Upon reevaluation patient reports that the GI cocktail and Protonix has taken away all of her discomfort, she is currently asymptomatic. Given her elevated D-dimer will pursue CTA. CTA pending. Patient agreeable to repeat troponin and EKG at the 3-hour ean. Medical Records Medical records reviewed: Yes I reviewed the patient's medical records. Imaging Data Radiologic Study: Attestation: I personally reviewed and interpreted this imaging study as follows: Imaging: X-Ray Radiologist's impression: Chest x-ray negative Lab Data Lab results reviewed: Yes I reviewed the patient's lab results. Labs: Laboratory Tests Range/Units 08/25/20 08/25/20 08/25/20 21:15 21:15 21:15 WBC (4.4-10.8) 10^3/uL 13.32 H RBC (3.93-5.22) 10^6/uL 3.96 Hgb (11.2-15.7) g/dL 14.0 Hct (36.0-46.0) % 40.4 MCV (80-95) fL 102.0 H MCH (27.0-33.0) pg 35.4 H MCHC (32.0-36.0) % 34.7 RDW (11.7-14.6) % 12.7 Plt Count (130-400) 10^3/uL 299 MPV (8.0-11.0) fL 8.8 Immature Gran % 0.5 Neutrophils % 56.6 Lymphocytes % 33.1 Monocytes % 5.9 Eosinophils % 3.1 Basophils % 0.8 Nucleated RBC % % 0 Absolute Neutrophils (1.2-6.7) 10^3/uL 7.54 H Absolute Lymphocytes (1.2-3.4) 10^3/uL 4.41 H Absolute Monocytes (0.1-0.8) 10^3/uL 0.79 Absolute Eosinophils (0.0-0.7) 10^3/uL 0.41 Absolute Basophils (0.0-0.2) 10^3/uL 0.11 PT (9.3-11.0) sec 10.0 INR (0.9-1.1) 1.0 APTT (21.0-27.5) sec 23.1 D-Dimer (<500) ng/mlFEU Sodium (136-145) mmol/L 139 Potassium (3.5-5.1) mmol/L 3.7 Chloride (98-107) mmol/L 102 Carbon Dioxide (21.0-32.0) mmol/L 25.3 Anion Gap (3-11) mmol/L 11.7 H BUN (7-18) mg/dL 12 Creatinine (0.55-1.02) mg/dL 1.1 H Estimated GFR/1.73 m2 (mL/min/1.73m2) 52.79 Glucose (74-106) mg/dL 116 H Calcium (8.5-10.1) mg/dL 9.5 Magnesium (1.8-2.4) mg/dL 1.9 Total Bilirubin (0.2-1.0) mg/dL 0.2 AST (15-37) U/L 21 ALT (14-59) U/L 36 Alkaline Phosphatase (46-116) U/L 163 H Troponin I (<0.06) ng/mL < 0.05 NT-Pro-B Natriuret Pep (<300) pg/mL 176 Total Protein (6.4-8.2) g/dL 8.9 H Albumin (3.4-5.0) g/dL 4.0 Range/Units 08/25/20 21:15 WBC (4.4-10.8) 10^3/uL RBC (3.93-5.22) 10^6/uL Hgb (11.2-15.7) g/dL Hct (36.0-46.0) % MCV (80-95) fL MCH (27.0-33.0) pg MCHC (32.0-36.0) % RDW (11.7-14.6) % Plt Count (130-400) 10^3/uL MPV (8.0-11.0) fL Immature Gran % Neutrophils % Lymphocytes % Monocytes % Eosinophils % Basophils % Nucleated RBC % % Absolute Neutrophils (1.2-6.7) 10^3/uL Absolute Lymphocytes (1.2-3.4) 10^3/uL Absolute Monocytes (0.1-0.8) 10^3/uL Absolute Eosinophils (0.0-0.7) 10^3/uL Absolute Basophils (0.0-0.2) 10^3/uL PT (9.3-11.0) sec INR (0.9-1.1) APTT (21.0-27.5) sec D-Dimer (<500) ng/mlFEU 1185 H Sodium (136-145) mmol/L Potassium (3.5-5.1) mmol/L Chloride (98-107) mmol/L Carbon Dioxide (21.0-32.0) mmol/L Anion Gap (3-11) mmol/L BUN (7-18) mg/dL Creatinine (0.55-1.02) mg/dL Estimated GFR/1.73 m2 (mL/min/1.73m2) Glucose (74-106) mg/dL Calcium (8.5-10.1) mg/dL Magnesium (1.8-2.4) mg/dL Total Bilirubin (0.2-1.0) mg/dL AST (15-37) U/L ALT (14-59) U/L Alkaline Phosphatase (46-116) U/L Troponin I (<0.06) ng/mL NT-Pro-B Natriuret Pep (<300) pg/mL Total Protein (6.4-8.2) g/dL Albumin (3.4-5.0) g/dL ECG Data Attestation: I personally reviewed and interpreted this ECG (s) as follows: Interpretation: Please see official report by Dr. Orozco. Atrial sensed ventricular paced rhythm. Biventricular paced rhythm. Ventricular rate of 103. Limited value. <Modesto Beebe DO - Last Filed: 08/26/20 00:55> Patient signed out to me by my colleague Pro Moctezuma, please refer to his HPI, physical exam assessment and plan. At time of signout we are pending CT scan results, repeat troponin and repeat EKG. Troponin is normal on repeat, EKG is stable. CT scan shows no evidence of pulmonary embolism, but does show moderate emphysema. On reassessment patient remained stable, hemodynamically stable, no signs of overt heart failure at this time, especially in the setting of a normal proBNP. Symptoms have resolved, symptoms at this time appear more consistent with reflux and GERD, and clinically inconsistent with ACS, especially with her symptoms having been greater than 6 hours ago and negative serial troponins and negative serial EKGs. At this time after long discussion with the patient about the importance of smoking cessation, I do feel the patient is stable for discharge. Discussed red flags which to return. Discussed dietary changes which to make. At this time there is no clinical evidence of an acute life-threatening etiology requiring admission or continued monitoring. I have extensively reviewed the treatment plan and discharge instructions with the patient. I have addressed all patient concerns at this time. The patient was made aware of what symptoms to monitor for that would warrant a return to the emergency department. Discussed the plan with the patient, they demonstrate verbal understanding and agreement with our assessment and plan at this time. The documentation in this chart was dictated using [employer] dictation software. Please excuse any dictation errors. FINDINGS: Tubes, catheters and devices: Left chest wall signal generator with intracardiac electrodes. Pulmonary arteries: Normal. No pulmonary emboli. Aorta: Unremarkable. No aortic aneurysm. No aortic dissection. Lungs: Moderate paraseptal and centrilobular emphysema. No parenchymal mass or consolidation. Pleural spaces: Unremarkable. No pneumothorax. No pleural effusion. Heart: Unremarkable. No cardiomegaly. No pericardial effusion. Lymph nodes: Unremarkable. No enlarged lymph nodes. Bones/joints: Unremarkable. No acute fracture. Soft tissues: Unremarkable. IMPRESSION: 1. No pulmonary embolism. 2. Moderate emphysema. Thank you for allowing us to participate in the care of your patient. Dictated and Authenticated by: Prasanth Luna MD 08/25/2020 11:03 PM Eastern Time ([place] & [place]) HPI <SANDRA Hall - Last Filed: 08/26/20 16:01> General Mode of arrival: ambulatory. Date/Time Provider Initiated Documentation: 08/25/20 21:01. Limitations to Documentation: no limitations. Information obtained by: patient. HPI Narrative: This is a 49-year-old female, past medical history that includes depression, chronic migraines, known left bundle branch block, pacemaker, stroke, current smoker, mitral regurgitation, dilated cardiomyopathy, spontaneous pneumothorax. She did provide me with a [employer] card which revealed that she had this pacemaker implanted February [id number]. The patient is presenting to the ER reporting intermittent acid reflux that extends from her epigastric region up to her throat, worse with eating, and has a sour taste in her mouth. She reports that she took [id number] medication with little relief. Last night the pain was severe, woke her from sleep, the only thing that helps her sleeping in an upward angle. She awoke this morning asymptomatic. Around 6 PM she developed the acid reflux once again but at that time she also had what she describes as left-sided chest pressure. The pressure did not radiate anywhere. She denies recent illness or trauma. She denies headache, fever, shortness of breath. She does report minimal nausea with one episode of vomiting. Nausea has resolved. Reports mild lower back pain. She denies pain or swelling in her legs. She reports that her acid reflux symptoms are a 2 out of 10 currently and she has no left-sided chest pain. She did take a single baby aspirin prior to arrival. She is followed by cardiology at [facility]. Related Data Home Medications Medication Instructions Recorded Confirmed ibuprofen 200 mg PO PRN ml 10/07/12 08/25/20 Aspirin/Acetaminophen/Caffeine 1 tab PO PRN PRN 04/10/17 08/25/20 [Excedrin Migraine Caplet] naproxen sodium [Aleve] 220 mg PO Q12H PRN tab-cap 04/16/17 08/25/20 metoprolol succinate 25 mg 25 mg PO BID tab 10/09/19 08/25/20 tablet,extended release 24 hr spironolactone 25 mg tablet 12.5 mg PO DAILY tab 11/20/19 08/25/20 amitriptyline 50 mg tablet 50 mg PO QHS #90 tab 02/02/20 02/02/20 lisinopril 2.5 mg tablet 2.5 mg PO DAILY 02/02/20 08/25/20 amitriptyline 75 mg tablet 75 mg PO QHS #30 tab 08/02/20 08/25/20 Previous Rx's Medication Instructions Recorded amitriptyline 50 mg tablet 50 mg PO QHS #90 tab 02/02/20 amitriptyline 75 mg tablet 75 mg PO QHS #30 tab 08/02/20 Allergies Allergy/AdvReac Type Severity Reaction Status Date / Time fentanyl Allergy Severe SOB Unverified 08/02/20 08:36 morphine Allergy Intermediate Itching Unverified 08/02/20 08:36 General NARA: 3 Review of Systems <SANDRA Hall - Last Filed: 08/26/20 16:01> Constitutional Constitutional: Denies fatigue, Denies fever(s) and Denies headache(s) ENT Ears, Nose, Mouth, and Throat: Denies headache(s) and Denies neck pain Cardiovascular Cardiovascular: Reports chest pain and Denies dyspnea Respiratory Respiratory: Denies cough and Denies dyspnea Gastrointestinal Gastrointestinal: Denies abdominal pain, Reports nausea and Reports vomiting Genitourinary Genitourinary: Denies dysuria Musculoskeletal Musculoskeletal: Reports back pain, Denies neck pain, Denies numbness and Denies tingling Integumentary/Breasts Skin/Breast: Denies erythema and Denies rash Neurologic Neurologic: Denies headache(s), Denies numbness and Denies tingling Endocrine Endocrine: Denies fatigue Hematologic/Lymphatic Hematologic/Lymphatic: Denies easy bleeding and Denies easy bruising PFSH <SANDRA Hall - Last Filed: 08/26/20 16:01> Medical History Cervicalgia 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) Depression Headache, chronic migraine without aura Hypertrophy of nasal turbinates (10/05/14) Left bundle branch block (LBBB) on electrocardiogram Migraine with aura, not intractable, without status migrainosus Pacemaker Stroke Tobacco abuse Vitamin D deficiency Surgical History H/O: hysterectomy History of Social History Smoking/Tobacco Use Status: Current every day Tobacco Type: cigarettes Smoking risk assessment performed?: Yes Alcohol Intake: never Drug use: Never Current gender identity: female Do you feel safe at home: Yes Do you feel safe in your relationship?: Yes Exam <SANDRA Hall - Last Filed: 08/26/20 16:01> Const General: cooperative, healthy appearing, comfortable and no acute distress Orientation: alert, awake and oriented x3 HENMT Head: normal to inspection, normocephalic and atraumatic Face and sinus: normal facial exam Mouth: moist mucous membranes Throat: posterior oropharynx normal Eyes General: appearance normal, both eyes and all related structures Alignment and Position: alignment normal Periorbital: periorbital findings normal Eyelids: eyelids normal Conjunctivae: conjunctivae normal Sclera: sclerae normal Cornea: corneas normal Pupils: PERRL EOM: EOM intact bilaterally Direct ophthalmoscopy: normal light reflex Neck Neck: normal visual inspection, full ROM, trachea midline, supple and nontender Chest Chest: normal inspection of the chest and normal palpation of entire chest wall Resp Effort & Inspection: normal respiratory effort and able to speak in complete sentences Auscultation: clear to auscultation bilaterally Cardio Rate: regular rate Rhythm: regular rhythm GI Palpation: soft and nontender Back/Spine/Pelvis Back: No back tenderness Skin General skin exam: no rashes or lesions noted Neuro General: patient alert, patient awake, moves all extremities and no focal motor deficits Cognition: normal cognition Speech: speech normal Gait: normal gait Sensory Exam: no sensory deficits noted Extrem General: normal to inspection, full ROM, capillary refill normal, no pedal edema and no calf tenderness Psych Appearance: grossly normal Mental Status: mental status grossly normal Sign Out <SANDRA Hall - Last Filed: 08/26/20 16:01> Sign Out Data: Sign Out Comment: Acid reflux x1 week, worse last night, left-sided chest pain today. Initial troponin and BNP unremarkable. Patient is now asymptomatic after 3 baby aspirin, GI cocktail and 40 IV Protonix. Patient agreeable to repeat troponin and EKG at the 3-hour ean. She is awaiting results of CTA as she had an elevated D-dimer. Last updated by Pro Moctezuma PA at 08/25/20 23:19
[2020-08-25] MEDS: Normal Saline 1,000 ML 125 ML IV (21:17)
[2020-08-25] MEDS: Aspirin 81 MG CHEW 243 MG CH (21:19)
[2020-08-25 21:25] LABS: Abs Immature Grans 0.07 10^3/uL (0.0-0.06); Absolute Basophil Count 0.11 10^3/uL (0.0-0.2); Absolute Eosinophil Count 0.41 10^3/uL (0.0-0.7); Absolute Lymphocyte Count 4.41 10^3/uL (1.2-3.4); Absolute Neutrophil Count 7.54 10^3/uL (1.2-6.7); Basophils % 0.8; Eosinophils % 3.1; HCT 40.4 % (36.0-46.0); Immature Grans % 0.5; Lymphocytes % 33.1; MCH 35.4 pg (27.0-33.0); MCHC 34.7 % (32.0-36.0); MPV 8.8 fL (8.0-11.0); Monocytes % 5.9; Neutrophils % 56.6; Nucleated RBC 0 %; Platelet Count 299 10^3/uL (130-400); RBC 3.96 10^6/uL (3.93-5.22); RDW 12.7 % (11.7-14.6); RDW-SD 47.8 fL; WBC 13.32 10^3/uL (4.4-10.8)
[2020-08-25 21:26] LABS: Absolute Monocyte Count 0.79 10^3/uL (0.1-0.8)
[2020-08-25] MEDS: Pantoprazole 40 MG VIAL IVP (21:45)
[2020-08-25 21:49] LABS: ALT 36 U/L (14-59); AST 21 U/L (15-37); Alkaline Phosphatase 163 U/L (46-116); Anion Gap 11.7 mmol/L (3-11); BUN 12 mg/dL (7-18); Bilirubin, Total 0.2 mg/dL (0.2-1.0); CO2 25.3 mmol/L (21.0-32.0); CREATININE 1.1 mg/dL (0.55-1.02); Calcium 9.5 mg/dL (8.5-10.1); Chloride 102 mmol/L (98-107); Estimated GFR 52.79 (mL/min/1.73m2); Glucose 116 mg/dL (74-106); Magnesium 1.9 mg/dL (1.8-2.4); NT-proBNP 176 pg/mL (<300); Potassium 3.7 mmol/L (3.5-5.1); Sodium 139 mmol/L (136-145); Total Protein 8.9 g/dL (6.4-8.2)
[2020-08-25 21:50] LABS: Troponin I < 0.05 ng/mL (<0.06)
[2020-08-25 22:09] LABS: PTT Activated 23.1 sec (21.0-27.5)
[2020-08-25 22:14] LABS: D-Dimer 1185 ng/mlFEU (<500)
--- NOTE | 2020-08-25 22:29 | DI.VRAD_ITS ---
PROCEDURE INFORMATION: Exam: XR Chest Exam date and time: 08/25/2020 10:02 PM Age: 49 years old Clinical indication: Pain; Other: Chest; Prior surgery; Surgery type: Pacer TECHNIQUE: Imaging protocol: XR of the chest. Views: 2 views. COMPARISON: CR XR CHEST 2V PA LATERAL 08/22/2018 9:05 AM FINDINGS: Tubes, catheters and devices: Left chest wall signal generator with 3 intracardiac leads. Lungs: Pulmonary hyperinflation. Lungs are clear of consolidation or mass. Biapical pleuroparenchymal scarring. Pleural spaces: Unremarkable. No pleural effusion. No pneumothorax. Heart/Mediastinum: Unremarkable. No cardiomegaly. Bones/joints: Unremarkable. IMPRESSION: 1. No acute cardiopulmonary abnormality. 2. COPD changes. 3. Interval placement of left chest wall pacing device. Dictated and Authenticated by: Prasanth Luna MD. Ordering:EFREN Mast MD
[2020-08-25] MEDS: Normal Saline Flush 10 ML SYR IVP (22:49)
[2020-08-25] MEDS: Normal Saline - Diluent 50 ML VIAL IV (22:49)
[2020-08-25] MEDS: Omnipaque 350 MG/ML 100 ML BTL IJ (22:50)
--- NOTE | 2020-08-25 22:56 | DI.CT_ITS ---
Exam(s) CT CHEST PE CTA EXAM: CT CHEST PE CTA CLINICAL HISTORY: chest pain, elevated dimer. TECHNIQUE: Imaging Protocol: Axial CT angiography was performed with multi-slice acquisition and mu lti-planar and/or 3D reconstructions. CONTRAST MATERIAL: Intravenous: Omnipaque 350 Contrast volume:62 mL COMPARISON: CT CT CHEST PE CTA from 08/22/2018 FINDINGS: Tracheobronchial tree: Patent where visualized. Pulmonary parenchyma: No consolidation or dominant measurable mass. Moderately severe centrilobular a nd paraseptal emphysematous changes are present. Calcified granuloma are present. Pulmonary Arteries: No evidence of filling defect to suggest pulmonary emboli. Mediastinum and Charisma: No dominant adenopathy or fluid collection. Visualized thyroid gland: Unremarkable. Pleura: No effusion or pneumothorax. Heart: The heart is not dilated. No coronary artery calcifications are seen. No pericardial effusion. Cardiac pacing leads are present. Aorta: Thoracic aorta non-dilated. No dissection. Upper abdomen: Unremarkable. Soft tissues: Unremarkable. Bones: Normal. IMPRESSION: No evidence of pulmonary embolism, thoracic aortic dissection or aneurysm. RADIATION DOSE DELIVERED: 314.44mGy.cm Total DLP DATA REPOSITORY: All CT scans at this facility are submitted to the National Radiology Data Registry (NRDR) Dose Index Registry (DIR) with the [employer] (ACR). RADIATION OPTIMIZATION: All CT scans at this facility use at least one of these dose optimization te chniques: automated exposure control; mA and/or kV adjustment per patient size (includes targeted exa ms where dose is matched to clinical indication); or iterative reconstruction.
--- NOTE | 2020-08-25 23:04 | DI.VRAD_ITS ---
PROCEDURE INFORMATION: Exam: CTA Chest With Contrast Exam date and time: 08/25/2020 10:18 PM Age: 49 years old Clinical indication: Pain; Other: Chest; Prior surgery; Surgery date: 6+ months; Surgery type: Pacer TECHNIQUE: Imaging protocol: Computed tomographic angiography of the chest with contrast. 3D rendering (Not supervised by radiologist): MIP and/or 3D reconstructed images were created by the technologist. Radiation optimization: All CT scans at this facility use at least one of these dose optimization techniques: automated exposure control; mA and/or kV adjustment per patient size (includes targeted exams where dose is matched to clinical indication); or iterative reconstruction. Contrast material: [id number]; Contrast volume: 64 ml; Contrast route: INTRAVENOUS (IV); COMPARISON: CT CHEST PE CTA 08/22/2018 9:51 AM FINDINGS: Tubes, catheters and devices: Left chest wall signal generator with intracardiac electrodes. Pulmonary arteries: Normal. No pulmonary emboli. Aorta: Unremarkable. No aortic aneurysm. No aortic dissection. Lungs: Moderate paraseptal and centrilobular emphysema. No parenchymal mass or consolidation. Pleural spaces: Unremarkable. No pneumothorax. No pleural effusion. Heart: Unremarkable. No cardiomegaly. No pericardial effusion. Lymph nodes: Unremarkable. No enlarged lymph nodes. Bones/joints: Unremarkable. No acute fracture. Soft tissues: Unremarkable. IMPRESSION: 1. No pulmonary embolism. 2. Moderate emphysema. Dictated and Authenticated by: Prasanth Luna MD. Ordering:EFREN Mast MD
[2020-08-26] VITALS: PULSE 77; RESP 17; O2SAT 98
--- NOTE | 2020-08-26 | RT.EKG_ITS ---
APPROVED REPORT Exam: Resting ECG Reason for Exam: chest pain Patient Location: E HR:74 bpm ECG Measurements Heart Rate 74 AXIS MD 159 P 63 QRSd 143 QRS 44 QT 445 T 99 QTc 495 Conclusion Atrial-sensed ventricular-paced rhythm...ventricular pacing tracks p-waves Physician: No STEMI, good capture, negative for SCARBOSSA
[2020-08-26 00:10] VITALS: PULSE 81; RESP 17; O2SAT 100
[2020-08-26 00:20] VITALS: PULSE 78; RESP 17; O2SAT 98
[2020-08-26 00:30] VITALS: PULSE 80; RESP 16; O2SAT 97
[2020-08-26 00:38] LABS: Troponin I < 0.05 ng/mL (<0.06)
[2020-08-26 00:54] VITALS: BP 127/86; PULSE 83; RESP 16; TEMP 36.7; O2SAT 97
== END 2020-08-26 00:56 | disposition home or self-care (01) ==
PROVIDERS: Physician Assistant; Emergency Provider Student in an Organized Health Care Education/Training Program; PCP Nurse Practitioner
DX: R07.9 Chest pain, unspecified (principal); R79.1 Abnormal coagulation profile
CPT/HCPCS: 71275; 80053; 93005; 96361; 96374; 99285; 71046; 83735; 83880; 84484; 85025; 85379; 85610; 85730; 93010; 99284; J3490

== ENCOUNTER 2021-05-19 18:42 | Outpatient (REF) | payer OTHER, SELFPAY ==
[2021-05-19 13:59] LABS: HCT 42.2 % (36.0-46.0); HGB 14.1 g/dL (11.2-15.7); MCH 35.4 pg (27.0-33.0); MCHC 33.4 % (32.0-36.0); MPV 9.2 fL (8.0-11.0); Platelet Count 278 10^3/uL (130-400); RBC 3.98 10^6/uL (3.93-5.22); RDW 12.2 % (11.7-14.6); RDW-SD 48.5 fL; WBC 8.87 10^3/uL (4.4-10.8)
[2021-05-19 14:21] LABS: ALT 31 U/L (14-59); AST 20 U/L (15-37); Albumin 3.6 g/dL (3.4-5.0); Alkaline Phosphatase 157 U/L (46-116); Anion Gap 11.6 mmol/L (3-11); BUN 8 mg/dL (7-18); Bilirubin, Total 0.2 mg/dL (0.2-1.0); CO2 22.4 mmol/L (21.0-32.0); CREATININE 1.2 mg/dL (0.55-1.02); Calcium 9.1 mg/dL (8.5-10.1); Chloride 104 mmol/L (98-107); Cholesterol 317 mg/dL (<200); Estimated GFR 47.55 (mL/min/1.73m2); Glucose 98 mg/dL (74-106); HDL Cholesterol 28 mg/dL (40-60); Potassium 4.8 mmol/L (3.5-5.1); Sodium 138 mmol/L (136-145); Total Protein 7.8 g/dL (6.4-8.2); Triglyceride 572 mg/dL (<150)
[2021-05-19 14:32] LABS: LDL CHOLESTEROL 168 mg/dL (<100)
== END 2021-05-19 18:43 | disposition home or self-care (01) ==
LOC: NCHCN 18:42
PROVIDERS: PCP Nurse Practitioner; Visit Provider Nurse Practitioner Family
DX: I50.9 Heart failure, unspecified (principal); I42.9 Cardiomyopathy, unspecified; J44.9 Chronic obstructive pulmonary disease, unspecified; G45.9 Transient cerebral ischemic attack, unspecified; F17.210 Nicotine dependence, cigarettes, uncomplicated
CPT/HCPCS: 80053; 80061; 83721; 85027

== ENCOUNTER 2021-10-09 21:43 | Emergency (ER) | payer OTHER, SELFPAY ==
--- NOTE | 2021-10-09 21:45 | DI.RAD_ITS ---
Exam(s) XR PORTABLE CHEST AP EXAM: XR PORTABLE CHEST AP CLINICAL HISTORY: central chest pain TECHNIQUE: 2D digital imaging was performed. COMPARISON: CR,XR XR CHEST 2V PA LATERAL from 08/25/[address] CHEST PE CTA from 08/25/2020 FINDINGS: LUNGS: biapical scarring. Mildly increased interstitial changes. Streaky densities adjacent to the left heart border, developing infiltrate versus atelectasis.. No pleural abnormality seen. HEART: Normal size. Pacemaker. AORTA: Normal. BONES: Unremarkable for age. Soft tissues: Unremarkable. IMPRESSION: Question of left infiltrate versus atelectasis. DATA REPOSITORY: RADIATION DOSE DELIVERED:
--- NOTE | 2021-10-09 21:45 | RT.EKG_ITS ---
APPROVED REPORT Exam: Resting ECG Reason for Exam: chest pain Patient Location: E HR:78 bpm ECG Measurements Heart Rate 78 AXIS OH 174 P 256 QRSd 133 QRS 23 QT 381 T 248 QTc 434 Conclusion Atrial-sensed ventricular-paced rhythm...ventricular pacing tracks p-waves Physician: Atrial sensed ventricularly paced rhythm, good capture, negative for Sgarbossa criteria. Electrically similar to previous EKGs.
[2021-10-09 21:47] VITALS: BP 127/67; PULSE 85; RESP 18; TEMP 36.7; O2SAT 98
--- NOTE | 2021-10-09 22:00 | W.ED.GENAD ---
Discharge Plan Disposition Patient Disposition: HOME Condition: Good Discharge Details Clinical Impression: Chest pain Primary Care Provider: Elisa Saini ED Provider: Modesto Beebe Home Meds and New Rx's Prescriptions: Continued spironolactone 25 mg tablet 12.5 mg PO DAILY amitriptyline 75 mg tablet 75 mg PO QHS Qty: 90 3RF metoprolol succinate 25 mg tablet extended release 24 hr 75 mg PO BID lisinopril 2.5 mg tablet 2.5 mg PO DAILY ibuprofen 100 MG/5 ML suspension 200 mg PO PRN naproxen sodium [Aleve] 220 MG tablet 220 mg PO Q12H PRN Aspirin/Acetaminophen/Caffeine [Excedrin Migraine Caplet] 1 EACH tablet 1 tab PO PRN PRN Discharge Instructions Instructions: Chest Pain (ED) Additional Instructions: At this time your exam is very reassuring. Your EKG is stable, and your troponin levels are normal. Clinically your symptoms appear inconsistent with a heart attack. Please return if you have any change or return of your symptoms. Please follow-up closely with your primary care provider and your production service manager. If you notice any worsening of your symptoms, or any new symptoms such as vomiting, diarrhea, fever, chills, shortness of breath, chest pain, numbness, weakness, or fainting , please return immediately to the emergency department for reevaluation. Please follow up with your primary care provider as soon as possible for reassessment and reevaluation. As always, it was a pleasure participating in your medical care today. Referrals: Elisa Saini [Primary Care Provider] - Medical Decision Making This is a 51-year-old female with a past medical history of pacemaker, ischemic previous pneumothoraces, cardiomyopathy, previous CVA, who presents today for evaluation of chest pain. Patient states that 30 minutes prior to arrival she was sitting watching a TV show when she suddenly had a sharp burning sensation in the center of her chest. It lasted for 2 to 3 seconds and then resolved completely on its own. She checked her blood pressure and it was normal, she checked her heart rate and is slightly elevated. But of concern for cardiac history she came into the ER for further assessment. She currently denies any vomiting, diarrhea, chest pain, burning, tearing or ripping sensation, arm neck or shoulder pain, numbness, tingling, or weakness. She denies any new spicy foods, she denies any medication changes she denies any other complaints at this time. She denies any positional component to her pain or symptoms. She states that she feels very well right now, and her symptoms are completely resolved as they only lasted a few seconds at home. Physical exam demonstrates a well-appearing female. No chest pain or shortness of breath currently. Vital signs stable. Pulses present throughout. Brisk capillary refill in all extremities. Bedside limited echo demonstrates good cardiac motility, no significant abnormality noted on limited exam. EKG shows evidence of left bundle branch block, good capture, negative for scarBosa's. At this time with complete resolution of the patient's symptoms, a stable EKG, and no other significant abnormalities on exam. I feel cardiac etiology is unlikely, GERD is most likely. Patient did take aspirin prior to arrival. We will check cardiac values, interrogate the pacemaker, monitor closely and reassess. 11:17 PM Laboratory work-up is returned normal, proBNP normal showing no suggestion of heart strain. Lipase normal, troponin normal, EKG stable. Chest x-ray shows probable congestive heart failure, however clinically that is notably inconsistent with her symptoms, especially with a normal proBNP as well. She has no signs of fluid overload, lungs are clear. Radiology also says that there is a patchy infiltrate in the left lower lobe, however the patient has had notable pneumothoraces in the past, and I suspect this is more so a component of scarring. Patient is otherwise notably stable and she continues to feel well with no chest pain whatsoever. Symptoms appear inconsistent with ACS at this time. I did recommend repeat troponin and EKG for the patient at the 3-hour ean, however the patient states that since she feels fine she would like to go home. She understands the risks of this, and has elected for this still. She states she does live close and will return if she has any return of her symptoms whatsoever. Understanding the risk, I will respect the patient's decisions, she will be discharged home at her request. Additionally the patient's pacemaker was interrogated, no events were noted whatsoever on it. No evidence of V. tach, V. fib, A. fib, or other abnormality. I have extensively reviewed the treatment plan and discharge instructions with the patient. I have addressed all patient concerns at this time. The patient was made aware of what symptoms to monitor for that would warrant a return to the emergency department. Discussed the plan with the patient, they demonstrate verbal understanding and agreement with our assessment and plan at this time. The documentation in this chart was dictated using [email or web address] dictation software. Please excuse any dictation errors. EKG 21: 53 Atrial sensed ventricularly paced rhythm, good capture, negative for Sgarbossa criteria. Electrically similar to previous EKGs. FINDINGS: Tubes, catheters and devices: A pacemaker device is present, and its leads are in appropriate position. Lungs: The lungs are hyperinflated, consistent with underlying small airways disease. Patchy infiltrate present within the left lower lobe of the lung may represent focal. There is mild pulmonary venous congestion. There is mild diffuse interstitial edema. Underlying inflammatory or infectious process not excluded. Pleural spaces: There no pleural effusion. No evidence of pneumothorax. Heart/Mediastinum: The heart is enlarged. There is prominence of the mediastinum. Bones/joints: The skeletal structures and soft tissues show no evidence of fracture or other acute processes. Soft tissues: The soft tissues of the extrathoracic region are unremarkable. IMPRESSION: 1. Probable congestive heart failure. Underlying inflammatory or infectious process not excluded. 2. The lungs are hyperinflated, consistent with underlying small airways disease. 3. Patchy infiltrate present within the left lower lobe of the lung may represent focal. Thank you for allowing us to participate in the care of your patient. Dictated and Authenticated by: El Coker MD 10/09/2021 10:41 PM Eastern Time ([place] & [place]) HPI General Date/Time Provider Initiated Documentation: 10/09/21 21:44. HPI Narrative: This is a 51-year-old female with a past medical history of pacemaker, ischemic previous pneumothoraces, cardiomyopathy, previous CVA, who presents today for evaluation of chest pain. Patient states that 30 minutes prior to arrival she was sitting watching a TV show when she suddenly had a sharp burning sensation in the center of her chest. It lasted for 2 to 3 seconds and then resolved completely on its own. She checked her blood pressure and it was normal, she checked her heart rate and is slightly elevated. But of concern for cardiac history she came into the ER for further assessment. She currently denies any vomiting, diarrhea, chest pain, burning, tearing or ripping sensation, arm neck or shoulder pain, numbness, tingling, or weakness. She denies any new spicy foods, she denies any medication changes she denies any other complaints at this time. She denies any positional component to her pain or symptoms. She states that she feels very well right now, and her symptoms are completely resolved as they only lasted a few seconds at home. Related Data Home Medications Medication Instructions Recorded Confirmed ibuprofen 100 mg/5 mL oral 200 mg PO PRN 10/07/12 08/29/21 suspension Aspirin/Acetaminophen/Caffeine 1 tab PO PRN PRN 04/10/17 08/29/21 [Excedrin Migraine Caplet] naproxen sodium 220 mg tablet 220 mg PO Q12H PRN 04/16/17 08/25/20 (Aleve) spironolactone 25 mg tablet 12.5 mg PO DAILY 11/20/19 08/29/21 lisinopril 2.5 mg tablet 2.5 mg PO DAILY 02/02/20 08/29/21 amitriptyline 75 mg tablet 75 mg PO QHS #90 tabs 08/29/21 08/29/21 metoprolol succinate 25 mg 75 mg PO BID 08/29/21 08/29/21 tablet,extended release 24 hr Previous Rx's Medication Instructions Recorded amitriptyline 75 mg tablet 75 mg PO QHS #90 tabs 08/29/21 Allergies Allergy/AdvReac Type Severity Reaction Status Date / Time fentanyl Allergy Severe SOB Verified 08/29/21 08:31 morphine Allergy Intermediate Itching Verified 08/29/21 08:31 General Stated Complaint: Chest Pain NARA: 2 Review of Systems All systems reviewed & are unremarkable except as noted in HPI and below PFSH All Active Problems (Updated 10/09/21 @ 23:12 by Modesto Beebe DO) Chest pain (Acute) Chest pain (Acute) Headache, chronic migraine without aura (Chronic) Ostium secundum atrial septal defect (Chronic) Severe mitral regurgitation (Acute) Ischemic dilated cardiomyopathy (Acute) Atypical chest pain (Acute) DVT prophylaxis (Acute) Tobacco abuse (Chronic) Elevated brain natriuretic peptide (BNP) level (Acute) Dyspnea (Acute) Cephalgia (Chronic 10/05/14) 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) Hypertrophy of nasal turbinates (Chronic 10/05/14) Migraine (Chronic 10/15/12) Left bundle branch block (LBBB) on electrocardiogram (Chronic) Medical History Cervicalgia Depression Migraine with aura, not intractable, without status migrainosus Pacemaker Stroke Vitamin D deficiency Surgical History H/O: hysterectomy History of Social History Smoking/Tobacco Use Status: Current every day Tobacco Type: cigarettes Smoking risk assessment performed?: Yes Alcohol Intake: never Drug use: Never Current gender identity: female Do you feel safe at home: Yes Do you feel safe in your relationship?: Yes Exam Narrative Exam Narrative: 1.Const: Well-nourished, Well-developed, appearing stated age 2.Eyes: PERRL, no conjunctival injection, and symmetrical lids. 3.ENT: Atraumatic external nose and ears. Moist MM. Neck: Symmetric, trachea midline, No thyromegaly. 4.CVS: +S1/S2, No murmurs or gallops. Peripheral pulses 2+ and equal in all extremities, with minimal decrease in pulse on the left upper extremity but presents still notably noted. Brisk capillary refill in all extremities. 5.RESP: Unlabored respiratory effort. Clear to auscultation bilaterally. No wheezes rales or rhonchi 6.GI: Soft, Nontender/Nondistended, No hepatosplenomegaly. No guarding or rebound. 7.MSK: Normocephalic/Atraumatic, Extremities w/o deformity or ttp No cyanosis or clubbing, Normal movement of all extremities 8.Skin: Warm, Dry. No rashes or lesions. 9.Neuro: product promoter sales person II-XII grossly intact. Sensation grossly intact, no focal neurologic deficits. 10.Psych: (AAO) x3. Appropriate mood and affect Course Vital Signs Vital signs: Vital Signs Temperature 36.7 C 10/09/21 21:47 Pulse 85 10/09/21 21:47 Respiratory Rate 18 10/09/21 21:47 Blood Pressure 127/67 10/09/21 21:47 Pulse Oximetry 98 10/09/21 21:47 Temperature 36.7 C 10/09/21 21:47 Temperature Source Temporal Artery Scan 07/17/22 21:47 Pulse 85 10/09/21 21:47 Respiratory Rate 18 10/09/21 21:47 Respiratory Effort Non-Labored 10/09/21 21:51 Respiratory Depth Normal 10/09/21 21:51 Respiratory Pattern Normal 10/09/21 21:51 Blood Pressure 127/67 10/09/21 21:47 Blood Pressure Position Supine 10/09/21 21:47 Pulse Oximetry 98 10/09/21 21:47 Oxygen Delivery Method Room Air 10/09/21 21:47 Oxygen Flow Rate 0 10/09/21 21:47 Pain Level 0 10/09/21 21:51
[2021-10-09 22:16] LABS: Abs Immature Grans 0.02 10^3/uL (0.0-0.06); Absolute Basophil Count 0.08 10^3/uL (0.0-0.2); Absolute Eosinophil Count 0.26 10^3/uL (0.0-0.7); Absolute Lymphocyte Count 3.81 10^3/uL (1.2-3.4); Absolute Monocyte Count 0.76 10^3/uL (0.1-0.8); Absolute Neutrophil Count 5.29 10^3/uL (1.2-6.7); Basophils % 0.8; Eosinophils % 2.5; HCT 37.6 % (36.0-46.0); HGB 12.7 g/dL (11.2-15.7); Immature Grans % 0.2; Lymphocytes % 37.3; MCH 35.2 pg (27.0-33.0); MCHC 33.8 % (32.0-36.0); MCV 104 fL (80-95); MPV 8.5 fL (8.0-11.0); Monocytes % 7.4; Neutrophils % 51.8; Platelet Count 220 10^3/uL (130-400); RBC 3.61 10^6/uL (3.93-5.22); RDW 12.6 % (11.7-14.6); RDW-SD 48.5 fL; WBC 10.22 10^3/uL (4.4-10.8)
[2021-10-09 22:37] LABS: ALT 28 U/L (14-59); AST 21 U/L (15-37); Albumin 3.4 g/dL (3.4-5.0); Alkaline Phosphatase 149 U/L (46-116); Anion Gap 11.2 mmol/L (3-11); BUN 17 mg/dL (7-18); Bilirubin, Total 0.2 mg/dL (0.2-1.0); CO2 21.8 mmol/L (21.0-32.0); CREATININE 1.1 mg/dL (0.55-1.02); Calcium 8.8 mg/dL (8.5-10.1); Chloride 105 mmol/L (98-107); Estimated GFR 52.36 (mL/min/1.73m2); Glucose 111 mg/dL (74-106); Lipase 118 U/L (73-393); NT-proBNP 256 pg/mL (<300); Potassium 3.8 mmol/L (3.5-5.1); Sodium 138 mmol/L (136-145); Total Protein 7.5 g/dL (6.4-8.2); Troponin I < 50 ng/L (<or=60)
--- NOTE | 2021-10-09 22:41 | DI.VRAD_ITS ---
PROCEDURE INFORMATION: Exam: XR Chest Exam date and time: 10/09/2021 10:11 PM Age: 51 years old Clinical indication: Other: Central chest pain TECHNIQUE: Imaging protocol: Radiologic exam of the chest. Views: 1 view. COMPARISON: CR XR CHEST 2V PA LATERAL 08/25/2020 9:59 PM FINDINGS: Tubes, catheters and devices: A pacemaker device is present, and its leads are in appropriate position. Lungs: The lungs are hyperinflated, consistent with underlying small airways disease. Patchy infiltrate present within the left lower lobe of the lung may represent focal. There is mild pulmonary venous congestion. There is mild diffuse interstitial edema. Underlying inflammatory or infectious process not excluded. Pleural spaces: There no pleural effusion. No evidence of pneumothorax. Heart/Mediastinum: The heart is enlarged. There is prominence of the mediastinum. Bones/joints: The skeletal structures and soft tissues show no evidence of fracture or other acute processes. Soft tissues: The soft tissues of the extrathoracic region are unremarkable. IMPRESSION: 1. Probable congestive heart failure. Underlying inflammatory or infectious process not excluded. 2. The lungs are hyperinflated, consistent with underlying small airways disease. 3. Patchy infiltrate present within the left lower lobe of the lung may represent focal. Dictated and Authenticated by: El Coker MD. Ordering:JOSSELIN Salvador MD
[2021-10-09 23:25] VITALS: PULSE 73; RESP 14; O2SAT 96
== END 2021-10-09 23:26 | disposition home or self-care (01) ==
PROVIDERS: Emergency Provider Student in an Organized Health Care Education/Training Program; PCP Nurse Practitioner
DX: R07.9 Chest pain, unspecified (principal); Z95.0 Presence of cardiac pacemaker; I42.9 Cardiomyopathy, unspecified
CPT/HCPCS: 36415; 80053; 83690; 93005; 99284; 71045; 83880; 84484; 85025; 93010; 99283

== ENCOUNTER 2023-03-10 17:50 | Emergency (ER) | payer BC, SELFPAY ==
[2023-03-10 17:52] VITALS: BP 117/66; PULSE 105; RESP 20; TEMP 37.3; O2SAT 100
[2023-03-10 18:06] VITALS: RESP 18
[2023-03-10 18:27] VITALS: RESP 18
--- NOTE | 2023-03-10 18:57 | W.ED.GENAD ---
Discharge Plan Disposition Patient Disposition: Home Discharge Details Clinical Impression: Sialoadenitis Primary Care Provider: DANYELLE MERAZ ED Provider: Lucero Andrade Home Meds and New Rx's Prescriptions: Continued spironolactone 25 mg tablet 12.5 mg PO DAILY metoprolol succinate 25 mg tablet extended release 24 hr 75 mg PO BID lisinopril 2.5 mg tablet 2.5 mg PO DAILY amitriptyline 75 mg tablet 75 mg PO QHS Qty: 90 3RF ibuprofen 100 MG/5 ML suspension 200 mg PO PRN naproxen sodium [Aleve] 220 MG tablet 220 mg PO Q12H PRN Aspirin/Acetaminophen/Caffeine [Excedrin Migraine Caplet] 1 EACH tablet 1 tab PO PRN PRN Discharge Instructions Additional Instructions: drink warm tea and apply moist heat to jaw area Suck on tart, hard candies to increase salivary flow, Tylenol as needed for pain Be aware that when you eat, this will likely swell You should pass the stone on your own, however should you develop worsening pain, shortness of breath, increased facial swelling, fever, please return immediately for reassessment 48 hour recheck with pcp with persistent symptom s Referrals: DANYELLE MERAZ, GENERAL SURGERY PHYSICIAN ASSISTANT [Primary Care Provider] - Medical Decision Making 52-year-old female presenting with report of right facial pain and swelling adjacent to the right preauricular and mandibular region, concern for sialoadenitis, no trismus, no stone noted to Stensen's or Haywood's duct, uvula midline, maintaining secretions No evidence of angioedema, suspect patient has sialoadenitis and eating exacerbated swelling, will use sialagogues and warm compresses and warm return precautions reviewed, no indication for antibiotics at time of assessment, no erythema, resolving swelling, no fever Pulse 97 and temp 97.6 at reassessment Return precautions reviewed and patient expressed understanding, discharged home in stable condition with stable vitals, asymptomatic aside from some mild swelling HPI General Date/Time Provider Initiated Documentation: 03/10/23 18:05. HPI Narrative: This 50-year-old female with complex medical history of CVA, severe mitral regurg, ischemic dilated cardiomyopathy presents with report of right facial pain. Patient states that she was eating when her face began to tingle and then swell adjacent to her right ear, she denies prior history of similar symptoms in the past. She states that it has been resolving over the course of an hour. She denies any difficulty swallowing, chest pain, shortness of breath. Related Data Home Medications Medication Instructions Recorded Confirmed ibuprofen 100 mg/5 mL oral 200 mg PO PRN 10/07/12 03/10/23 suspension Aspirin/Acetaminophen/Caffeine 1 tab PO PRN PRN 04/10/17 03/10/23 [Excedrin Migraine Caplet] naproxen sodium 220 mg tablet 220 mg PO Q12H PRN 04/16/17 03/10/23 (Aleve) spironolactone 25 mg tablet 12.5 mg PO DAILY 11/20/19 03/10/23 lisinopril 2.5 mg tablet 2.5 mg PO DAILY 02/02/20 03/10/23 metoprolol succinate 25 mg 75 mg PO BID 08/29/21 03/10/23 tablet,extended release 24 hr amitriptyline 75 mg tablet 75 mg PO QHS #90 tabs 08/29/22 03/10/23 Previous Rx's Medication Instructions Recorded amitriptyline 75 mg tablet 75 mg PO QHS #90 tabs 08/29/22 Allergies Allergy/AdvReac Type Severity Reaction Status Date / Time fentanyl Allergy Severe SOB Verified 03/10/23 17:57 morphine Allergy Intermediate Itching Verified 03/10/23 17:57 General Stated Complaint: GenMedical NARA: 3 PFSH All Active Problems (Updated 03/10/23 @ 18:22 by SANDRA Fernandes) Sialoadenitis (Acute) Migraine headache without aura (Acute) Chest pain (Acute) Ostium secundum atrial septal defect (Chronic) Severe mitral regurgitation (Acute) Ischemic dilated cardiomyopathy (Acute) Atypical chest pain (Acute) DVT prophylaxis (Acute) Tobacco abuse (Chronic) Elevated brain natriuretic peptide (BNP) level (Acute) Dyspnea (Acute) Headache, chronic migraine without aura (Chronic) Cephalgia (Chronic 10/05/14) 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) Hypertrophy of nasal turbinates (Chronic 10/05/14) Migraine (Chronic 10/15/12) Left bundle branch block (LBBB) on electrocardiogram (Chronic) Medical History Cervicalgia Depression Migraine with aura, not intractable, without status migrainosus Pacemaker Stroke Vitamin D deficiency Surgical History H/O: hysterectomy History of Social History Smoking/Tobacco Use Status: Current every day Tobacco Type: cigarettes Smoking risk assessment performed?: Yes Alcohol Intake: never Drug use: Never Current gender identity: female Do you feel safe at home: Yes Do you feel safe in your relationship?: Yes Course Vital Signs Vital signs: Vital Signs Temperature 37.3 C 03/10/23 17:52 Pulse 105 H 03/10/23 17:52 Respiratory Rate 20 03/10/23 17:52 Blood Pressure 117/66 03/10/23 17:52 Pulse Oximetry 100 03/10/23 17:52 Temperature 37.3 C 03/10/23 17:52 Temperature Source Skin 03/10/23 17:52 Pulse 105 H 03/10/23 17:52 Respiratory Rate 18 03/10/23 18:27 Respiratory Effort Normal 03/10/23 18:06 Respiratory Depth Normal 03/10/23 18:06 Respiratory Pattern Normal 03/10/23 18:06 Blood Pressure 117/66 03/10/23 17:52 Blood Pressure Position Sitting 03/10/23 17:52 Pulse Oximetry 100 03/10/23 17:52 Oxygen Delivery Method Room Air 03/10/23 17:52 Oxygen Flow Rate 0 03/10/23 17:52 Pain Level 0 03/10/23 17:52
== END 2023-03-10 18:34 | disposition home or self-care (01) ==
PROVIDERS: Emergency Provider Physician Assistant; PCP Nurse Practitioner Family
DX: K11.21 Acute sialoadenitis (principal); I25.5 Ischemic cardiomyopathy; I42.0 Dilated cardiomyopathy; R20.2 Paresthesia of skin
CPT/HCPCS: 99282; 99283